=== PATIENT | male | born 1945 | race Caucasian/White ===

== ENCOUNTER 2017-01-25 11:08 | Observation (INO) | payer MEDICARE, OTHER ==
[2017-01-25 11:37] LABS: CHLORIDE,CL 105 mEq/L (98-106); SODIUM,NA 141 mEq/L (136-145)
[2017-01-25] MEDS ORDERED: Sodium Chloride 0.9% 10 ML Syringe FLUSH PRN (13:40)
[2017-01-25] MEDS ORDERED: Temazepam 15 MG Cap PO PRN (13:40)
[2017-01-25] MEDS ORDERED: Morphine 2 MG/ML Syringe IVPUSH PRN (13:40)
[2017-01-25] MEDS ORDERED: Ondansetron 4 MG Tab.DIS PO PRN (13:40)
[2017-01-25] MEDS ORDERED: Acetaminophen/HYDROcodone 325-5 MG Tab PO PRN (13:40)
[2017-01-25] MEDS ORDERED: Nitroglycerin 0.4 MG Tab.SL SL PRN ×2 (13:44→13:45)
[2017-01-25] MEDS ORDERED: ALPRAZOLAM 0.5 MG PO PRN (13:45)
[2017-01-25] MEDS ORDERED: TRIAMCINOLONE ACETONIDE INH PRN (13:45)
[2017-01-25] MEDS ORDERED: LEVALBUTEROL TARTRATE INH PRN (13:45)
[2017-01-25] MEDS ORDERED: OXYMETAZOLINE 0.05% NASBOTH PRN (13:45)
[2017-01-25] MEDS: Enoxaparin 40 MG/0.4 ML Syringe SUBCUT SCH ×2 (19:55→20:07)
[2017-01-25] MEDS: BUDESONIDE 0.5 MG/2 ML INH SCH ×2 (19:55→20:07)
[2017-01-25] MEDS ORDERED: PRAMIPEXOLE 0.5 MG PO SCH (20:00)
[2017-01-25] MEDS ORDERED: TEMAZEPAM 15 MG PO SCH (20:00)
[2017-01-25] MEDS: PERFOROMIST 20 MCG INH SCH (20:07)
[2017-01-26] MEDS ORDERED: LEVOTHYROXINE 125 MCG PO SCH (07:00)
[2017-01-26] MEDS ORDERED: OMEPRAZOLE 20 MG PO SCH (07:00)
[2017-01-26] MEDS ORDERED: ROSUVASTATIN 10 MG PO SCH (08:00)
[2017-01-26] MEDS ORDERED: SERTRALINE 100 MG PO SCH (08:00)
[2017-01-26] MEDS ORDERED: Aspirin 81 MG Tab.EC PO SCH (08:00)
[2017-01-26] MEDS ORDERED: PTOM-AMLODIPINE 5MG TAB PO SCH (08:00)
[2017-01-26] MEDS ORDERED: SPIRIVA RESPIMAT INH SCH (08:00)
[2017-01-26] MEDS ORDERED: Isosorbide Mononitrate 30 MG Tab.ER PO SCH ×2 (08:30→08:58)
[2017-01-26] MEDS: BUDESONIDE 0.5 MG/2 ML INH SCH (09:36)
[2017-01-26] MEDS: PERFOROMIST 20 MCG INH SCH (09:36)
[2017-01-26 16:19] VITALS: BP 145/68
--- NOTE | 2017-01-27 12:56 | PCM.DCSUM1 ---
Discharge Summary - Hospital Course Free Text/Narrative:: Patient admitted by Dr. Fry with chest pain that radiated down left arm, shortness of breath and headache. Patient's blood pressure was elevated at 170/ 80. Admitted for cardiac work up. Had had a stress test a year ago that patient relates was normal. - Discharge Data Discharge Date: 01/26/17 Discharge Disposition: Home, Self-Care 01 Condition: Good - Patient Summary/Data Complications: none Hospital Course: Patient admitted for cardiac work up. EKGs have been normal. D-Dimer was 0.48. Troponin was negative through stay. Blood pressures did remain high so was started on ImDur and did have a good response and blood pressure returned to normal. No further chest pain today. Denies any increased shortness of breath. - Patient Instructions Diet: Usual Diet as Tolerated Activity: As Tolerated - Discharge Plan Prescriptions/Med Rec: Isosorbide Mononitrate [Imdur] 30 mg PO ONETIME #30 tab.er Home Medications: Home Meds Aspirin [Halfprin] 81 mg PO DAILY 12/24/15 [History] Levalbuterol Tartrate [Xopenex HFA] 2 puff INH Q4HR 12/24/15 [History] Levothyroxine 125 mcg PO ACBREAKFAST 12/24/15 [History] Nitroglycerin [Nitrostat] 0.4 mg SL Q5M PRN 12/24/15 [History] Omeprazole [Prilosec] 20 mg PO DAILY 12/24/15 [History] Pramipexole Di-HCl [Pramipexole Dihydrochloride] 0.5 mg PO BEDTIME 12/24/15 [ History] Rosuvastatin [Crestor] 10 mg PO DAILY 12/24/15 [History] Sertraline HCl 150 mg PO DAILY 12/24/15 [History] Temazepam [Restoril] 15 mg PO BEDTIME 12/24/15 [History] Triamcinolone Acetonide [Nasacort AQ [place]] 2 sprays INH BEDTIME PRN 12/24/15 [ History] amLODIPine Besylate [Norvasc] 5 mg PO DAILY 12/24/15 [History] ALPRAZolam [Xanax] 0.5 mg PO Q6H PRN 01/27/16 [History] Budesonide [Pulmicort] 0.5 mg NEB BID 01/25/17 [History] Formoterol [Perforomist] 20 mcg NEB BID 01/25/17 [History] Oxymetazoline [Afrin Original 0.05% Nasal [place]] 2 spray NASBOTH BID PRN [History] Tiotropium [place] [Spiriva Respimat] 2 puff INH DAILY 01/25/17 [History] Isosorbide Mononitrate [Imdur] 30 mg PO ONETIME #30 tab.er 01/26/17 [Rx] Referrals: Bonifacio Fry MD [Primary Care Provider] - (Follow up with Dr. Fry in 10 days ) - Discharge Summary/Plan Comment DC Time >30 min.: No Discharge Summary/Plan Comment: Discharge home. Will continue ImDur in addition to his usual meds. Follow up with Dr. Fry in a week. Report any changes in status sooner as needed. - General Info Date of Service: 01/26/17 Admission Dx/Problem (Free Text: Chest Pain Functional Status: Reports: pain controlled, tolerating diet, ambulating - Review of Systems General: Denies: fever, weakness, fatigue HEENT: Reports: no symptoms Pulmonary: Reports: shortness of breath. Denies: cough, wheezing Cardiovascular: Denies: chest pain, edema, lightheadedness Gastrointestinal: Denies: Abdominal pain, Diarrhea, Nausea, Vomiting Genitourinary: Reports: no symptoms Musculoskeletal: Reports: no symptoms Skin: Reports: no symptoms - Patient Data Vitals - Most Recent: Last Vital Signs Temp 99.3 F 01/26/17 16:00 Pulse 62 01/26/17 16:00 Resp 18 01/26/17 16:00 BP 145/68 H 01/26/17 16:00 Pulse Ox 95 01/26/17 16:00 Weight - Most Recent: 171 lb 11.2 oz Med Orders - Current: Current Medications Discontinued Medications Acetaminophen/Hydrocodone Bitart ([place] 325-5 Mg) 1 tab PO Q4H PRN PRN Reason: Pain (moderate 4-6) Aspirin (Halfprin) 81 mg PO DAILY [facility] Last Admin: 01/26/17 07:45 Dose: 81 mg Budesonide (Pulmicort) 0.5 mg INH BIDRT [facility] Last Admin: 01/26/17 09:36 Dose: 0.5 mg Enoxaparin Sodium (Lovenox) 40 mg SUBCUT Q24H [facility] Last Admin: 01/25/17 20:07 Dose: Not Given Isosorbide Mononitrate (Imdur) 20 mg PO DAILY [facility] Last Admin: 01/26/17 11:05 Dose: Not Given Isosorbide Mononitrate (Imdur) 30 mg PO DAILY [facility] Last Admin: 01/26/17 09:31 Dose: 30 mg Levothyroxine Sodium (Levothyroxine) 125 mcg PO ACBREAKFAST [facility] Last Admin: 01/26/17 07:44 Dose: 125 mcg Morphine Sulfate (Morphine) 2 mg IVPUSH Q2H PRN PRN Reason: Pain (severe 7-10) Nitroglycerin (Nitrostat) 0.4 mg SL Q5M PRN PRN Reason: Chest Pain Stop: 01/25/17 13:55 Nitroglycerin (Nitrostat) 0.4 mg SL Q5M PRN PRN Reason: Chest Pain Ptom (Alprazolam [ (Xanax] 0.5 Mg)) 0.5 mg PO Q6H PRN PRN Reason: Anxiety Last Admin: 01/25/17 19:54 Dose: 0.5 mg Ptom (Levalbuterol Tartrate [Xopenex Hfa] 2 Puff) 2 puff INH Q4H PRN PRN Reason: DYSPNEA Ptom (Omeprazole [ (Prilosec] 20 Mg)) 20 mg PO 0700 [facility] Last Admin: 01/26/17 07:44 Dose: 20 mg Ptom (Rosuvastatin [ (Crestor] 10 Mg)) 10 mg PO DAILY [facility] Last Admin: 01/26/17 07:46 Dose: 10 mg Ptom [Spiriva (Respimat] 2 Puff)) 2 puff INH DAILY [facility] Last Admin: 01/26/17 07:47 Dose: 2 puff Ptom- (Triamcinolone (Acetonide 2 Sprays)) 2 sprays INH BEDTIME PRN PRN Reason: Congestion Ptom-Amlodipine 5mg (Tab) 1 each PO DAILY [facility] Last Admin: 01/26/17 07:45 Dose: 1 each Perforomist 20mcg (Neb) 1 each INH BIDRT [facility] Last Admin: 01/26/17 09:36 Dose: 1 each Ondansetron HCl (Zofran Odt) 8 mg PO Q6H PRN PRN Reason: nausea, able to take PO Oxymetazoline HCl (Afrin Original 0.05% Nasal [place]) 0 ml NASBOTH BID PRN PRN Reason: Congestion Last Admin: 01/25/17 19:50 Dose: 1 spray Pramipexole Dihydrochloride (Mirapex) 0.5 mg PO BEDTIME [facility] Last Admin: 01/25/17 19:51 Dose: 0.5 mg Sertraline HCl (Zoloft) 150 mg PO DAILY [facility] Last Admin: 01/26/17 07:48 Dose: 150 mg Sodium Chloride (Saline Flush) 10 ml FLUSH ASDIRECTED PRN PRN Reason: Keep Vein Open Temazepam (Restoril) 15 mg PO BEDTIME [facility] Last Admin: 01/25/17 19:54 Dose: 15 mg - Exam General: Reports: alert, oriented HEENT: Reports: Mucous membr. moist/pink Neck: Reports: supple Lungs: Reports: Decreased breath sounds Cardiovascular: Reports: regular rate, regular rhythm Abdomen: Reports: bowel sounds present, soft, no tenderness Extremities: Reports: no edema Skin: Reports: warm, dry Neurological: Reports: no new focal deficit *Q Meaningful Use (DIS) - VTE *Q VTE Criteria *Q: - Stroke *Q Stroke Criteria *Q: - AMI *Q AMI Criteria *Q:
== END 2017-01-26 17:52 | disposition home or self-care (01) ==
LOC: CC.FCMC 11:08 → CC.MS 11:08 → UNDOADMOB 12:33 → CC.MS 13:40
PROVIDERS: ADMIT Family Medicine; ATTEND Family Medicine
DX: R07.9 Chest pain, unspecified (principal); J44.9 Chronic obstructive pulmonary disease, unspecified; E78.5 Hyperlipidemia, unspecified; I10 Essential (primary) hypertension; E03.9 Hypothyroidism, unspecified; R51 Headache; R06.02 Shortness of breath; Z79.82 Long term (current) use of aspirin; Z79.899 Other long term (current) drug therapy; N40.1 Benign prostatic hyperplasia with lower urinary tract symptoms; R35.1 Nocturia; F32.9 Major depressive disorder, single episode, unspecified; K21.9 Gastro-esophageal reflux disease without esophagitis; G47.00 Insomnia, unspecified; G25.81 Restless legs syndrome; Z88.0 Allergy status to penicillin; Z88.8 Allergy status to other drugs, medicaments and biological substances
CPT/HCPCS: 36415; 71020; 80048; 84484; 85025; 85379; 93005; 94640; 96372; A9270; G0378; J1650; 93010; 99217; 99220

== ENCOUNTER 2017-03-10 14:11 | Inpatient (IN) | payer MEDICARE, OTHER ==
[2017-03-10 14:30] LABS: O2 DELIVERY DEVICE ROOM AIR
[2017-03-10] MEDS ORDERED: Albuterol 0.083% 2.5 MG/3 ML Neb Soln ONE (14:36)
[2017-03-10 14:37] LABS: O2 SATURATION ARTERIAL 97 % (95-98); PCO2 ARTERIAL 39 mm/Hg0 (35-45); PO2 ARTERIAL 86 mm/Hg (80-100)
[2017-03-10] MEDS ORDERED: Albuterol 0.083% 2.5 MG/3 ML Neb Soln NEB PRN (15:02)
[2017-03-10] MEDS ORDERED: Acetaminophen 325 MG Tab PO PRN (15:52)
[2017-03-10] MEDS ORDERED: Temazepam 15 MG Cap PO PRN (15:52)
[2017-03-10] MEDS ORDERED: Sodium Chloride 0.9% 10 ML Syringe FLUSH PRN (15:52)
[2017-03-10] MEDS ORDERED: Nitroglycerin 0.4 MG Tab.SL SL PRN (15:55)
[2017-03-10] MEDS ORDERED: XOPENEX INH PRN (16:00)
[2017-03-10] MEDS ORDERED: methylPREDNISolone Sodium Succinate 125 MG/2 ML SDV IV ONE (16:00)
[2017-03-10] MEDS: Enoxaparin 40 MG/0.4 ML Syringe SUBCUT SCH (16:24)
[2017-03-10] MEDS: Levofloxacin/Dextrose 5%-Water 500 MG in Premix Bag 1 BAG IV SCH (16:24)
[2017-03-10] MEDS: ALPRAZolam 0.25 MG Tab PO PRN (16:31)
[2017-03-10 16:46] LABS: CHLORIDE,CL 102 mEq/L (98-106); SODIUM,NA 141 mEq/L (136-145)
[2017-03-10] MEDS ORDERED: Pramipexole 0.5 MG Tab ONE (19:44)
[2017-03-10] MEDS: Pramipexole 0.5 MG Tab PO SCH (19:49)
[2017-03-10] MEDS: NASACORT AQ SCH (19:50)
[2017-03-10] MEDS ORDERED: Budesonide 0.5 MG/2 ML Neb Susp NEB SCH (20:00)
[2017-03-10] MEDS: Budesonide 0.5 MG/2 ML Neb Susp NEB SCH (20:57)
[2017-03-10] MEDS: FORMOTEROL 20 MCG NEB SCH (20:58)
[2017-03-10] MEDS: Temazepam 15 MG Cap PO SCH (21:00)
[2017-03-11] MEDS: Pantoprazole 40 MG Tab.CR PO SCH (06:19)
[2017-03-11] MEDS: Levothyroxine 125 MCG Tab PO SCH (06:19)
[2017-03-11] MEDS: Sertraline 100 MG Tab PO SCH (08:01)
[2017-03-11] MEDS: Isosorbide Mononitrate 30 MG Tab.ER PO SCH (08:02)
[2017-03-11] MEDS: Aspirin 81 MG Tab.EC PO SCH (08:02)
[2017-03-11] MEDS: ROSUVASTATIN 10 MG PO SCH (08:02)
[2017-03-11] MEDS: methylPREDNISolone Sodium Succinate 125 MG/2 ML SDV IVPUSH SCH (08:03)
[2017-03-11] MEDS: ROFLUMILAST PO SCH (08:03)
[2017-03-11] MEDS: SPIRIVA RESPIMAT INH SCH (08:06)
[2017-03-11] MEDS: FORMOTEROL 20 MCG NEB SCH (09:00)
[2017-03-11] MEDS: ARFORMOTEROL 15 MCG/2 ML INH SCH ×2 (09:24→19:51)
[2017-03-11] MEDS: Budesonide 0.5 MG/2 ML Neb Susp NEB SCH ×2 (09:24→20:02)
[2017-03-11] MEDS: Levofloxacin/Dextrose 5%-Water 500 MG in Premix Bag 1 BAG IV SCH (15:56)
[2017-03-11] MEDS: Enoxaparin 40 MG/0.4 ML Syringe SUBCUT SCH (16:00)
[2017-03-11] MEDS: Pramipexole 0.5 MG Tab PO SCH (19:50)
[2017-03-11] MEDS: NASACORT AQ SCH (19:51)
[2017-03-11] MEDS: Temazepam 15 MG Cap PO SCH (21:11)
[2017-03-11] MEDS: ALPRAZolam 0.25 MG Tab PO PRN (21:12)
[2017-03-12] MEDS: Levothyroxine 125 MCG Tab PO SCH (06:42)
[2017-03-12] MEDS: Pantoprazole 40 MG Tab.CR PO SCH (06:42)
[2017-03-12 07:44] LABS: CHLORIDE,CL 103 mEq/L (98-106); SODIUM,NA 141 mEq/L (136-145)
[2017-03-12] MEDS: methylPREDNISolone Sodium Succinate 125 MG/2 ML SDV IVPUSH SCH (07:51)
[2017-03-12] MEDS: Aspirin 81 MG Tab.EC PO SCH (07:52)
[2017-03-12] MEDS: Sertraline 100 MG Tab PO SCH (07:53)
[2017-03-12] MEDS: Isosorbide Mononitrate 30 MG Tab.ER PO SCH (07:53)
[2017-03-12] MEDS: SPIRIVA RESPIMAT INH SCH (07:55)
[2017-03-12] MEDS: ROSUVASTATIN 10 MG PO SCH (07:56)
[2017-03-12] MEDS: ROFLUMILAST PO SCH (07:56)
[2017-03-12] MEDS: ARFORMOTEROL 15 MCG/2 ML INH SCH ×2 (08:40→21:19)
[2017-03-12] MEDS: Budesonide 0.5 MG/2 ML Neb Susp NEB SCH ×2 (08:40→21:18)
[2017-03-12] MEDS: ALPRAZolam 0.25 MG Tab PO PRN ×2 (09:19→21:25)
--- NOTE | 2017-03-12 10:30 | PCM.PN ---
- General Info Date of Service: 03/12/17 Functional Status: Reports: pain controlled - Review of Systems General: Reports: No Symptoms HEENT: Reports: sinus congestion Pulmonary: Reports: shortness of breath, cough, sputum, wheezing Cardiovascular: Reports: No Symptoms Gastrointestinal: Reports: No symptoms Genitourinary: Reports: no symptoms Musculoskeletal: Reports: no symptoms Skin: Reports: no symptoms Neurological: Reports: No Symptoms Psychiatric: Reports: no symptoms - Patient Data Vitals - most recent: Last Vital Signs Temp 98.9 F 03/12/17 07:46 Pulse 66 03/12/17 07:46 Resp 16 03/12/17 07:46 BP 158/78 H 03/12/17 07:53 Pulse Ox 97 03/12/17 07:46 Weight - most recent: 164 lb 12.8 oz Lab Results last 24 hrs: Laboratory Results - last 24 hr 03/12/17 03/12/17 Range/Units 05:00 05:00 WBC 5.3 (5.0-10.0) 10^3/uL RBC 3.94 L (4.50-6.00) 10^6/uL Hgb 13.0 L (14.0-18.0) g/dL Hct 38.4 L (40.0-54.0) % MCV 97.5 H (82.0-94.0) fL MCH 33.0 H (27.0-32.0) pg MCHC 33.9 (33.0-38.0) g/dL RDW Coeff of Arun 13.4 (11.0-15.0) % Plt Count 149 L (150-400) 10^3/uL Neut % (Auto) 84.9 (35-85) % Lymph % (Auto) 10.2 (10-55) % [place] % (Auto) 4.5 (0-16) % Eos % (Auto) 0.2 (0-5) % Baso % (Auto) 0.2 (0-3) % Neut # (Auto) 4.49 (1.80-7.00) 10^3/uL Lymph # (Auto) 0.54 L (1.00-4.80) 10^3/uL [place] # (Auto) 0.24 (0.00-0.80) 10^3/uL Eos # (Auto) 0.01 (0.00-0.45) 10^3/uL Baso # (Auto) 0.01 10^3/uL Sodium 141 (136-145) mEq/L Potassium 4.2 (3.5-5.0) mEq/L Chloride 103 (98-106) mEq/L Carbon Dioxide 32 (21-32) mmol/L BUN 30 H D (7-18) mg/dL Creatinine 1.0 (0.7-1.3) mg/dL Est Cr Clr Drug Dosing 71.64 mL/min Estimated GFR (MDRD) > 60 (>=60) mL/min Glucose 102 H D (75-99) mg/dL Calcium 8.6 (8.4-10.1) mg/dL Total Bilirubin 0.8 (0.0-1.0) mg/dL AST 21 (15-37) U/L ALT 22 (12-78) U/L Alkaline Phosphatase 60 (46-116) U/L C-Reactive Protein < 0.2 L (0.2-0.8) mg/dL Total Protein 7.1 (6.4-8.2) g/dL Albumin 4.0 (3.4-5.0) g/dL Myles Results last 24 hrs: Microbiology 03/11/17 09:30 Gram Stain - Final Sputum - Expectorated Med Orders - Current: Current Medications Acetaminophen (Tylenol) 650 mg PO Q4H PRN PRN Reason: Pain (Mild 1-3)/fever Last Admin: 03/11/17 19:50 Dose: 650 mg Albuterol (Proventil Neb Soln) 2.5 mg NEB Q4H PRN PRN Reason: Dyspnea Alprazolam (Xanax) 0.5 mg PO Q6H PRN PRN Reason: Anxiety Last Admin: 03/12/17 09:19 Dose: 0.5 mg Aspirin (Halfprin) 81 mg PO DAILY [facility] Last Admin: 03/12/17 07:52 Dose: 81 mg Budesonide (Pulmicort) 0.5 mg NEB BIDRT [facility] Last Admin: 03/12/17 08:40 Dose: 0.5 mg Enoxaparin Sodium (Lovenox) 40 mg SUBCUT Q24H [facility] Last Admin: 03/11/17 16:00 Dose: 40 mg Levofloxacin/Dextrose 500 mg/ (Premix) 100 mls @ 100 mls/hr IV Q24H [facility] Last Admin: 03/11/17 15:56 Dose: 100 mls/hr Isosorbide Mononitrate (Imdur) 30 mg PO DAILY [facility] Last Admin: 03/12/17 07:53 Dose: 30 mg Levothyroxine Sodium (Levothyroxine) 125 mcg PO ACBREAKFAST [facility] Last Admin: 03/12/17 06:42 Dose: 125 mcg Methylprednisolone Sodium Succinate (Solu-Medrol) 125 mg IVPUSH Q24H [facility] Last Admin: 03/12/17 07:51 Dose: 125 mg Nitroglycerin (Nitrostat) 0.4 mg SL Q5M PRN PRN Reason: Chest Pain Ptom [Xopenex Hfa] 2 (Puff)) 2 puff INH Q4H PRN PRN Reason: DYSPNEA Ptom (Roflumilast [ (Daliresp] 1 Tab)) 1 tab PO DAILY [facility] Last Admin: 03/12/17 07:56 Dose: 1 tab Ptom (Rosuvastatin [ (Crestor] 10 Mg)) 10 mg PO DAILY [facility] Last Admin: 03/12/17 07:56 Dose: 10 mg Ptom[Spiriva (Respimat] 2 Puff)) 2 puff INH DAILY [facility] Last Admin: 03/12/17 07:55 Dose: 2 puff Ptom Nasacort Aq 2 sprays .XX BEDTIME [facility] Last Admin: 03/11/17 19:51 Dose: 2 sprays Nf Medication 1 Each Brovana 15mcg/2ml * Own Med 1 each INH BID [facility] Last Admin: 03/12/17 08:40 Dose: 1 each Pantoprazole Sodium (Protonix) 40 mg PO 0700 [facility] Last Admin: 03/12/17 06:42 Dose: 40 mg Pramipexole Dihydrochloride (Mirapex) 0.5 mg PO BEDTIME [facility] Last Admin: 03/11/17 19:50 Dose: 0.5 mg Sertraline HCl (Zoloft) 150 mg PO DAILY [facility] Last Admin: 03/12/17 07:53 Dose: 150 mg Sodium Chloride (Saline Flush) 10 ml FLUSH ASDIRECTED PRN PRN Reason: Keep Vein Open Temazepam (Restoril) 15 mg PO 2100 [facility] Last Admin: 03/11/17 21:11 Dose: 15 mg Discontinued Medications Albuterol (Proventil Neb Soln) Confirm Administered Dose 2.5 mg .ROUTE .STK-MED ONE Stop: 03/10/17 14:37 Last Admin: 03/10/17 15:02 Dose: 2.5 mg Methylprednisolone Sodium Succinate (Solu-Medrol) 125 mg IV ONETIME ONE Stop: 03/10/17 16:01 Last Admin: 03/10/17 16:24 Dose: 125 mg Ptom (Formoterol [ (Perforomist] 20 Mcg)) 20 mcg NEB BIDRT [facility] Last Admin: 03/11/17 09:00 Dose: Not Given Pramipexole Dihydrochloride (Mirapex) Confirm Administered Dose 0.5 mg .ROUTE .STK-MED ONE Stop: 03/10/17 19:45 Last Admin: 03/10/17 19:50 Dose: Not Given - Exam Quality Assessment: supplemental oxygen General: alert, oriented, cooperative, no acute distress Neck: supple Lungs: Normal respiratory effort, Wheezing, Other (currently getting breathing treatment. ) Cardiovascular: Regular Rate, Regular Rhythm, No Murmurs Abdomen: soft, no tenderness, distension Back Exam: normal inspection, full range of motion Extremities: no edema, normal pulses, no tenderness/swelling, no clubbing, no cyanosis, no calf tenderness Peripheral Pulses: 2+: radial (L), radial (R), posterior tibial (L), posterior tibial (R), dorsalis pedis (L), dorsalis pedis (R) Skin: warm, dry, intact Neurological: no new focal deficit Psy/Mental Status: alert, normal affect, normal mood - Problem List Review Problem List Initiated/Reviewed/Updated: Yes - My Orders Last 24 Hours: My Active Orders 03/12/17 10:17 Ambulate [RC] ASDIRECTED - Plan Plan:: This patient is a 72 year old male that was admitted for shortness of breath. Today the patient reports that he is feeling better. He reports that when he wears the oxygen that he gets better. The patient does not know if the breathing treatments help him with the shortness of breath, although, I asked him if I took away his treatments if his breathing would get worse. He said yes his breathing would worsen if he did not have the breathing treatments. The patient is conversing in full and complete sentences. The patient oxygen saturation does drop when patient is off the oxygen. I have ordered the patient to ambulate in the dean with and without oxygen, will check saturation and how he does overall. The patient reports to me that he is going home tomorrow. He reports he will not stay any longer because he is getting his house moved Tuesday. The patient denies headache, n, v, d, f, cp, abd pain, urinary/bowel changes, rash. I have reviewed labs, his BUN was 16 on the , today is 30. His CR is actually better today, but was never abnormal. I will repeat labs tomorrow and see his results of ambulation and see this patient tomorrow. Will continue tx plan otherwise. With patients Dyspnea. I ordered an angio of the chest. Radiologist read and called me with results: No PE, No infiltrates. There is severe emphysema.
[2017-03-12] MEDS ORDERED: LORazepam 2 MG/ML Syringe IVPUSH ONE (13:19)
[2017-03-12] MEDS: Levofloxacin/Dextrose 5%-Water 500 MG in Premix Bag 1 BAG IV SCH (15:12)
[2017-03-12] MEDS: Enoxaparin 40 MG/0.4 ML Syringe SUBCUT SCH (15:17)
[2017-03-12] MEDS: Pramipexole 0.5 MG Tab PO SCH (20:02)
[2017-03-12] MEDS: NASACORT AQ SCH (21:19)
[2017-03-12] MEDS: Temazepam 15 MG Cap PO SCH (21:25)
[2017-03-13] MEDS: Levothyroxine 125 MCG Tab PO SCH (06:46)
[2017-03-13] MEDS: Pantoprazole 40 MG Tab.CR PO SCH (06:46)
[2017-03-13] MEDS: methylPREDNISolone Sodium Succinate 125 MG/2 ML SDV IVPUSH SCH (07:56)
[2017-03-13] MEDS: Sertraline 100 MG Tab PO SCH (07:58)
[2017-03-13] MEDS: Isosorbide Mononitrate 30 MG Tab.ER PO SCH (07:58)
[2017-03-13] MEDS: ALPRAZolam 0.25 MG Tab PO PRN (07:59)
[2017-03-13] MEDS: Aspirin 81 MG Tab.EC PO SCH (07:59)
[2017-03-13] MEDS: Budesonide 0.5 MG/2 ML Neb Susp NEB SCH ×2 (08:56→20:12)
[2017-03-13] MEDS: ROSUVASTATIN 10 MG PO SCH (08:57)
[2017-03-13] MEDS: ROFLUMILAST PO SCH (08:57)
[2017-03-13] MEDS: ARFORMOTEROL 15 MCG/2 ML INH SCH ×2 (08:58→20:13)
[2017-03-13] MEDS: SPIRIVA RESPIMAT INH SCH (08:58)
[2017-03-13] MEDS ORDERED: Fluconazole/Normal Saline 200 MG in Premix Bag 1 BAG IV SCH (10:00)
[2017-03-13] MEDS ORDERED: Albuterol/Ipratropium 3.0-0.5 MG/3 ML Neb Soln NEB ONE (10:03)
[2017-03-13 10:05] LABS: CHLORIDE,CL 103 mEq/L (98-106); SODIUM,NA 140 mEq/L (136-145)
--- NOTE | 2017-03-13 10:24 | PCM.PN ---
- General Info Date of Service: 03/13/17 Functional Status: Reports: pain controlled - Review of Systems General: Reports: No Symptoms HEENT: Reports: sinus congestion, rhinitis Pulmonary: Reports: shortness of breath, cough, sputum, wheezing Cardiovascular: Reports: No Symptoms Gastrointestinal: Reports: No symptoms Genitourinary: Reports: no symptoms Musculoskeletal: Reports: no symptoms Skin: Reports: no symptoms Neurological: Reports: No Symptoms Psychiatric: Reports: no symptoms - Patient Data Vitals - most recent: Last Vital Signs Temp 98.0 F 03/13/17 07:35 Pulse 62 03/13/17 07:35 Resp 2 L 03/13/17 07:35 BP 145/81 H 03/13/17 07:58 Pulse Ox 98 03/13/17 07:35 Weight - most recent: 164 lb 12.8 oz Lab Results last 24 hrs: Laboratory Results - last 24 hr 03/13/17 03/13/17 Range/Units 09:41 09:41 WBC 5.3 (5.0-10.0) 10^3/uL RBC 3.94 L (4.50-6.00) 10^6/uL Hgb 12.8 L (14.0-18.0) g/dL Hct 38.4 L (40.0-54.0) % MCV 97.5 H (82.0-94.0) fL MCH 32.5 H (27.0-32.0) pg MCHC 33.3 (33.0-38.0) g/dL RDW Coeff of Arun 13.3 (11.0-15.0) % Plt Count 148 L (150-400) 10^3/uL MPV 8.3 fL Sodium 140 (136-145) mEq/L Potassium 4.1 (3.5-5.0) mEq/L Chloride 103 (98-106) mEq/L Carbon Dioxide 31 (21-32) mmol/L BUN 33 H (7-18) mg/dL Creatinine 1.1 (0.7-1.3) mg/dL Est Cr Clr Drug Dosing 65.12 mL/min Estimated GFR (MDRD) > 60 (>=60) mL/min Glucose 126 H (75-99) mg/dL Calcium 8.5 (8.4-10.1) mg/dL C-Reactive Protein < 0.2 L (0.2-0.8) mg/dL Myles Results last 24 hrs: Microbiology 03/11/17 09:30 Gram Stain - Final Sputum - Expectorated Sputum Culture - Final YEAST Med Orders - Current: Current Medications Acetaminophen (Tylenol) 650 mg PO Q4H PRN PRN Reason: Pain (Mild 1-3)/fever Last Admin: 03/11/17 19:50 Dose: 650 mg Albuterol (Proventil Neb Soln) 2.5 mg NEB Q4H PRN PRN Reason: Dyspnea Last Admin: 03/12/17 13:04 Dose: 2.5 mg Alprazolam (Xanax) 0.5 mg PO TID [facility] Aspirin (Halfprin) 81 mg PO DAILY [facility] Last Admin: 03/13/17 07:59 Dose: 81 mg Budesonide (Pulmicort) 0.5 mg NEB BIDRT [facility] Last Admin: 03/13/17 08:56 Dose: 0.5 mg Enoxaparin Sodium (Lovenox) 40 mg SUBCUT Q24H [facility] Last Admin: 03/12/17 15:17 Dose: 40 mg Levofloxacin/Dextrose 500 mg/ (Premix) 100 mls @ 100 mls/hr IV Q24H [facility] Last Admin: 03/12/17 15:12 Dose: 100 mls/hr Fluconazole/Sodium Chloride (200 mg/ Premix) 100 mls @ 100 mls/hr IV Q24H [facility] Isosorbide Mononitrate (Imdur) 30 mg PO DAILY [facility] Last Admin: 03/13/17 07:58 Dose: 30 mg Levothyroxine Sodium (Levothyroxine) 125 mcg PO ACBREAKFAST [facility] Last Admin: 03/13/17 06:46 Dose: 125 mcg Methylprednisolone Sodium Succinate (Solu-Medrol) 125 mg IVPUSH Q24H [facility] Last Admin: 03/13/17 07:56 Dose: 125 mg Nitroglycerin (Nitrostat) 0.4 mg SL Q5M PRN PRN Reason: Chest Pain Ptom [Xopenex Hfa] 2 (Puff)) 2 puff INH Q4H PRN PRN Reason: DYSPNEA Ptom (Roflumilast [ (Daliresp] 1 Tab)) 1 tab PO DAILY [facility] Last Admin: 03/13/17 08:57 Dose: 1 tab Ptom (Rosuvastatin [ (Crestor] 10 Mg)) 10 mg PO DAILY [facility] Last Admin: 03/13/17 08:57 Dose: 10 mg Ptom[Spiriva (Respimat] 2 Puff)) 2 puff INH DAILY [facility] Last Admin: 03/13/17 08:58 Dose: 2 puff Ptom Nasacort Aq 2 sprays .XX BEDTIME [facility] Last Admin: 03/12/17 21:19 Dose: 2 sprays Nf Medication 1 Each Brovana 15mcg/2ml * Own Med 1 each INH BID [facility] Last Admin: 03/13/17 08:58 Dose: 1 each Pantoprazole Sodium (Protonix) 40 mg PO 0700 [facility] Last Admin: 03/13/17 06:46 Dose: 40 mg Pramipexole Dihydrochloride (Mirapex) 0.5 mg PO BEDTIME [facility] Last Admin: 03/12/17 20:02 Dose: 0.5 mg Sertraline HCl (Zoloft) 150 mg PO DAILY [facility] Last Admin: 03/13/17 07:58 Dose: 150 mg Sodium Chloride (Saline Flush) 10 ml FLUSH ASDIRECTED PRN PRN Reason: Keep Vein Open Temazepam (Restoril) 15 mg PO 2100 [facility] Last Admin: 03/12/17 21:25 Dose: 15 mg Discontinued Medications Albuterol (Proventil Neb Soln) Confirm Administered Dose 2.5 mg .ROUTE .STK-MED ONE Stop: 03/10/17 14:37 Last Admin: 03/10/17 15:02 Dose: 2.5 mg Albuterol/Ipratropium (Duoneb 3.0-0.5 Mg/3 Ml) 3 ml NEB ONETIME ONE Stop: 03/13/17 10:04 Alprazolam (Xanax) 0.5 mg PO Q6H PRN PRN Reason: Anxiety Last Admin: 03/13/17 07:59 Dose: 0.5 mg Lorazepam (Ativan) 1 mg IVPUSH ONETIME ONE Stop: 03/12/17 13:20 Last Admin: 03/12/17 13:48 Dose: 1 mg Methylprednisolone Sodium Succinate (Solu-Medrol) 125 mg IV ONETIME ONE Stop: 03/10/17 16:01 Last Admin: 03/10/17 16:24 Dose: 125 mg Ptom (Formoterol [ (Perforomist] 20 Mcg)) 20 mcg NEB BIDRT [facility] Last Admin: 03/11/17 09:00 Dose: Not Given Pramipexole Dihydrochloride (Mirapex) Confirm Administered Dose 0.5 mg .ROUTE .STK-MED ONE Stop: 03/10/17 19:45 Last Admin: 03/10/17 19:50 Dose: Not Given - Exam Quality Assessment: supplemental oxygen General: alert, oriented, cooperative, no acute distress HEENT: Pupils equal, Pupils reactive Neck: supple Lungs: Decreased breath sounds, Rhonchi, Wheezing Cardiovascular: Regular Rate, Regular Rhythm Abdomen: soft, no tenderness, distension (mild) Back Exam: normal inspection, full range of motion Extremities: no edema, normal pulses, no tenderness/swelling, no clubbing, no cyanosis, no calf tenderness Peripheral Pulses: 2+: radial (L), radial (R), posterior tibial (L), posterior tibial (R), dorsalis pedis (L), dorsalis pedis (R) Skin: warm, dry, intact Neurological: no new focal deficit Psy/Mental Status: alert, normal affect, normal mood - Problem List Review Problem List Initiated/Reviewed/Updated: Yes - My Orders Last 24 Hours: My Active Orders 03/12/17 13:14 PE Chest [Ang Chest] [CT] Stat 03/13/17 10:00 Fluconazole/Normal Saline [Diflucan in NS 200 MG/100 ML] 200 mg Premix Bag 1 bag IV Q24H 03/13/17 10:03 RT Aerosol Therapy [RC] ASDIRECTED 03/13/17 14:00 ALPRAZolam [Xanax] 0.5 mg PO TID - Plan Plan:: This patient is a 72 year old male that was admitted for shortness of breath. Today the patient reports that he is feeling better. He reports that when he wears the oxygen that he gets better. The patient is conversing in full and complete sentences. The patient oxygen saturation does drop when patient is off the oxygen. The patient is able to ambulate in the dean without oxygen at 88%, with oxygen at 93% without shortness of breath. He is laying in bed at 93% on 2.5L NC. He reports his breathing has not improved in the last 24 hours. He has agreed to stay in the hospital. Labs are unremarkable, but his culture of sputum is positive for yeast. I will treat this. The patient denies headache, n , v, d, f, cp, abd pain, urinary/bowel changes, rash. Will continue tx plan with Diflucan and a duoneb x1 today.
[2017-03-13] MEDS: ALPRAZolam 0.25 MG Tab PO SCH ×2 (13:53→20:12)
[2017-03-13] MEDS: Levofloxacin/Dextrose 5%-Water 500 MG in Premix Bag 1 BAG IV SCH (15:49)
[2017-03-13] MEDS: Enoxaparin 40 MG/0.4 ML Syringe SUBCUT SCH (15:49)
[2017-03-13] MEDS: Pramipexole 0.5 MG Tab PO SCH (20:12)
[2017-03-13] MEDS: NASACORT AQ SCH (20:13)
[2017-03-13] MEDS: Temazepam 15 MG Cap PO SCH (21:03)
[2017-03-14] MEDS: Pantoprazole 40 MG Tab.CR PO SCH (06:33)
[2017-03-14] MEDS: Levothyroxine 125 MCG Tab PO SCH (06:33)
[2017-03-14] MEDS: methylPREDNISolone Sodium Succinate 125 MG/2 ML SDV IVPUSH SCH (07:29)
[2017-03-14] MEDS: Isosorbide Mononitrate 30 MG Tab.ER PO SCH (07:29)
[2017-03-14] MEDS: Aspirin 81 MG Tab.EC PO SCH (07:29)
[2017-03-14] MEDS: ALPRAZolam 0.25 MG Tab PO SCH (07:29)
[2017-03-14] MEDS: Sertraline 100 MG Tab PO SCH (07:30)
[2017-03-14 07:31] VITALS: BP 144/74
[2017-03-14] MEDS: ROSUVASTATIN 10 MG PO SCH (07:31)
[2017-03-14] MEDS: SPIRIVA RESPIMAT INH SCH (07:33)
[2017-03-14] MEDS: ARFORMOTEROL 15 MCG/2 ML INH SCH (07:33)
[2017-03-14] MEDS ORDERED: Fluconazole/Normal Saline 200 MG in Premix Bag 1 BAG IV SCH (08:00)
--- NOTE | 2017-03-14 08:31 | PCM.PN ---
- General Info Date of Service: 03/11/17 Admission Dx/Problem (Free Text): COPD Exacerbation Functional Status: Reports: pain controlled, tolerating diet. Denies: ambulating - Review of Systems General: Reports: Weakness, Fatigue. Denies: Fever HEENT: Reports: rhinitis Pulmonary: Reports: shortness of breath, cough, sputum, wheezing Cardiovascular: Denies: Chest Pain, Edema, Lightheadedness Gastrointestinal: Denies: Abdominal pain, Nausea, Vomiting Genitourinary: Reports: no symptoms Musculoskeletal: Reports: no symptoms Skin: Reports: no symptoms Neurological: Reports: No Symptoms - Patient Data Vitals - most recent: Last Vital Signs Temp 97.4 F 03/14/17 07:30 Pulse 60 03/14/17 07:30 Resp 16 03/14/17 07:30 BP 144/74 H 03/14/17 07:30 Pulse Ox 98 03/14/17 07:30 Weight - most recent: 164 lb 12.8 oz Lab Results last 24 hrs: Laboratory Results - last 24 hr 03/13/17 03/13/17 Range/Units 09:41 09:41 WBC 5.3 (5.0-10.0) 10^3/uL RBC 3.94 L (4.50-6.00) 10^6/uL Hgb 12.8 L (14.0-18.0) g/dL Hct 38.4 L (40.0-54.0) % MCV 97.5 H (82.0-94.0) fL MCH 32.5 H (27.0-32.0) pg MCHC 33.3 (33.0-38.0) g/dL RDW Coeff of Arun 13.3 (11.0-15.0) % Plt Count 148 L (150-400) 10^3/uL MPV 8.3 fL Sodium 140 (136-145) mEq/L Potassium 4.1 (3.5-5.0) mEq/L Chloride 103 (98-106) mEq/L Carbon Dioxide 31 (21-32) mmol/L BUN 33 H (7-18) mg/dL Creatinine 1.1 (0.7-1.3) mg/dL Est Cr Clr Drug Dosing 65.12 mL/min Estimated GFR (MDRD) > 60 (>=60) mL/min Glucose 126 H (75-99) mg/dL Calcium 8.5 (8.4-10.1) mg/dL C-Reactive Protein < 0.2 L (0.2-0.8) mg/dL Myles Results last 24 hrs: Microbiology 03/11/17 09:30 Gram Stain - Final Sputum - Expectorated Sputum Culture - Final YEAST Med Orders - Current: Current Medications Acetaminophen (Tylenol) 650 mg PO Q4H PRN PRN Reason: Pain (Mild 1-3)/fever Last Admin: 03/11/17 19:50 Dose: 650 mg Albuterol (Proventil Neb Soln) 2.5 mg NEB Q4H PRN PRN Reason: Dyspnea Last Admin: 03/12/17 13:04 Dose: 2.5 mg Alprazolam (Xanax) 0.5 mg PO TID [facility] Last Admin: 03/14/17 07:29 Dose: 0.5 mg Aspirin (Halfprin) 81 mg PO DAILY [facility] Last Admin: 03/14/17 07:29 Dose: 81 mg Budesonide (Pulmicort) 0.5 mg NEB BIDRT [facility] Last Admin: 03/13/17 20:12 Dose: 0.5 mg Enoxaparin Sodium (Lovenox) 40 mg SUBCUT Q24H [facility] Last Admin: 03/13/17 15:49 Dose: 40 mg Levofloxacin/Dextrose 500 mg/ (Premix) 100 mls @ 100 mls/hr IV Q24H [facility] Last Admin: 03/13/17 15:49 Dose: 100 mls/hr Fluconazole/Sodium Chloride (200 mg/ Premix) 100 mls @ 100 mls/hr IV Q24H [facility] Isosorbide Mononitrate (Imdur) 30 mg PO DAILY [facility] Last Admin: 03/14/17 07:29 Dose: 30 mg Levothyroxine Sodium (Levothyroxine) 125 mcg PO ACBREAKFAST [facility] Last Admin: 03/14/17 06:33 Dose: 125 mcg Methylprednisolone Sodium Succinate (Solu-Medrol) 125 mg IVPUSH Q24H [facility] Last Admin: 03/14/17 07:29 Dose: 125 mg Nitroglycerin (Nitrostat) 0.4 mg SL Q5M PRN PRN Reason: Chest Pain Ptom [Xopenex Hfa] 2 (Puff)) 2 puff INH Q4H PRN PRN Reason: DYSPNEA Ptom (Roflumilast [ (Daliresp] 1 Tab)) 1 tab PO DAILY [facility] Last Admin: 03/13/17 08:57 Dose: 1 tab Ptom (Rosuvastatin [ (Crestor] 10 Mg)) 10 mg PO DAILY [facility] Last Admin: 03/14/17 07:31 Dose: 10 mg Ptom[Spiriva (Respimat] 2 Puff)) 2 puff INH DAILY [facility] Last Admin: 03/14/17 07:33 Dose: 2 puff Ptom Nasacort Aq 2 sprays .XX BEDTIME [facility] Last Admin: 03/13/17 20:13 Dose: 2 sprays Nf Medication 1 Each Brovana 15mcg/2ml * Own Med 1 each INH BID [facility] Last Admin: 03/14/17 07:33 Dose: 1 each Pantoprazole Sodium (Protonix) 40 mg PO 0700 [facility] Last Admin: 03/14/17 06:33 Dose: 40 mg Pramipexole Dihydrochloride (Mirapex) 0.5 mg PO BEDTIME [facility] Last Admin: 03/13/17 20:12 Dose: 0.5 mg Sertraline HCl (Zoloft) 150 mg PO DAILY [facility] Last Admin: 03/14/17 07:30 Dose: 150 mg Sodium Chloride (Saline Flush) 10 ml FLUSH ASDIRECTED PRN PRN Reason: Keep Vein Open Temazepam (Restoril) 15 mg PO 2100 [facility] Last Admin: 03/13/17 21:03 Dose: 15 mg Discontinued Medications Albuterol (Proventil Neb Soln) Confirm Administered Dose 2.5 mg .ROUTE .STK-MED ONE Stop: 03/10/17 14:37 Last Admin: 03/10/17 15:02 Dose: 2.5 mg Albuterol/Ipratropium (Duoneb 3.0-0.5 Mg/3 Ml) 3 ml NEB ONETIME ONE Stop: 03/13/17 10:04 Last Admin: 03/13/17 10:23 Dose: 3 ml Alprazolam (Xanax) 0.5 mg PO Q6H PRN PRN Reason: Anxiety Last Admin: 03/13/17 07:59 Dose: 0.5 mg Fluconazole/Sodium Chloride (200 mg/ Premix) 100 mls @ 100 mls/hr IV Q24H [facility] Last Admin: 03/13/17 10:23 Dose: 100 mls/hr Lorazepam (Ativan) 1 mg IVPUSH ONETIME ONE Stop: 03/12/17 13:20 Last Admin: 03/12/17 13:48 Dose: 1 mg Methylprednisolone Sodium Succinate (Solu-Medrol) 125 mg IV ONETIME ONE Stop: 03/10/17 16:01 Last Admin: 03/10/17 16:24 Dose: 125 mg Ptom (Formoterol [ (Perforomist] 20 Mcg)) 20 mcg NEB BIDRT [facility] Last Admin: 03/11/17 09:00 Dose: Not Given Pramipexole Dihydrochloride (Mirapex) Confirm Administered Dose 0.5 mg .ROUTE .STK-MED ONE Stop: 03/10/17 19:45 Last Admin: 03/10/17 19:50 Dose: Not Given - Exam Quality Assessment: supplemental oxygen General: alert, oriented HEENT: Mucous membr. moist/pink Neck: supple Lungs: Decreased breath sounds, Wheezing Cardiovascular: Regular Rate, Regular Rhythm Abdomen: bowel sounds present, soft, no tenderness Extremities: no edema Skin: warm, dry - Problem List & Annotations (1) COPD exacerbation SNOMED Code(s): 849204262, [id number] Code(s): J44.1 - CHRONIC OBSTRUCTIVE PULMONARY DISEASE W (ACUTE) EXACERBATION Status: Acute Priority: High Current Visit: No - Problem List Review Problem List Initiated/Reviewed/Updated: Yes - Assessment Assessment:: COPD Exacerbation - Plan Plan:: Patient states he had a rough night, didn't sleep well. He does continue to be short of breath. Wheezing. Vital signs stable. No fever. Labs are all stable. Will continue with IV steroids, nebs, Levaquin and RT treatments. Inappropriate for discharge. Continues to require oxygen.
[2017-03-14] MEDS: Budesonide 0.5 MG/2 ML Neb Susp NEB SCH (09:33)
[2017-03-14] MEDS ORDERED: Levalbuterol HCl 1.25 MG/3 ML Neb ONE (09:50)
--- NOTE | 2017-03-14 20:52 | PCM.DCSUM1 ---
Discharge Summary - Hospital Course Free Text/Narrative:: Patient admitted by Dr. Fry for COPD Exacerbation/Bronchitis. Patient had been at his son's house where a chimney had been torn down and there was a great deal of dust. Feels like this caused increased issues with his breathing/ COPD. Having difficulty handling activity with increased wheezing. Dr. Fry admitted and continued nebulizers and started him on steroids with lab work up. Oxygen required on admit. - Discharge Data Discharge Date: 03/14/17 Discharge Disposition: DC/Tfer W/I Hosp To [place] [id number] Condition: Fair - Discharge Diagnosis/Problem(s) (1) COPD exacerbation SNOMED Code(s): 199566451, [id number] ICD Code: J44.1 - CHRONIC OBSTRUCTIVE PULMONARY DISEASE W (ACUTE) EXACERBATION Status: Acute Priority: High - Patient Summary/Data Complications: none Consults: Consultations 03/10/17 15:52 Respiratory Care Assess and Treatment [CONS] Routine Hospital Course: Patient has had slow improvement with increase in air exchange. Feeling better than on admission. Initial labs were stable. Chest xray unremarkable for active infiltrate. Given usual nebs and respiratory treatments. Continued with IV steroids. Wheezing is improved but does continue to have difficulty with activity tolerance. Continues to require oxygen. Will transfer to [facility] bed for ongoing respiratory treatments, steroids and oxygen. - Discharge Plan Home Medications: Home Meds Aspirin [Halfprin] 81 mg PO DAILY 12/24/15 [History] Levalbuterol Tartrate [Xopenex HFA] 2 puff INH Q4HR 12/24/15 [History] Levothyroxine 125 mcg PO ACBREAKFAST 12/24/15 [History] Nitroglycerin [Nitrostat] 0.4 mg SL Q5M PRN 12/24/15 [History] Omeprazole [Prilosec] 20 mg PO DAILY 12/24/15 [History] Pramipexole Di-HCl [Pramipexole Dihydrochloride] 0.5 mg PO BEDTIME 12/24/15 [ History] Rosuvastatin [Crestor] 10 mg PO DAILY 12/24/15 [History] Sertraline HCl 150 mg PO DAILY 12/24/15 [History] Temazepam [Restoril] 15 mg PO BEDTIME 12/24/15 [History] Triamcinolone Acetonide [Nasacort AQ [place]] 2 sprays INH BEDTIME 12/24/15 [ History] ALPRAZolam [Xanax] 0.5 mg PO Q6H PRN 01/27/16 [History] Budesonide [Pulmicort] 0.5 mg NEB BID 01/25/17 [History] Formoterol [Perforomist] 20 mcg NEB BID 01/25/17 [History] Oxymetazoline [Afrin Original 0.05% Nasal [place]] 2 spray NASBOTH BID PRN [History] Tiotropium [place] [Spiriva Respimat] 2 puff INH DAILY 01/25/17 [History] Isosorbide Mononitrate [Imdur] 30 mg PO DAILY 03/10/17 [History] Roflumilast [Daliresp] 500 mcg PO DAILY 03/10/17 [History] - Discharge Summary/Plan Comment DC Time >30 min.: Yes Discharge Summary/Plan Comment: Transfer to swing bed. Ongoing nebs and oxygen. Time spent with patient 40 minutes for exam, documentation, orders. - General Info Date of Service: 03/14/17 Admission Dx/Problem (Free Text: COPD Exacerbation Functional Status: Reports: pain controlled, tolerating diet. Denies: ambulating - Review of Systems General: Reports: Weakness, Fatigue. Denies: Fever HEENT: Reports: no symptoms Pulmonary: Reports: shortness of breath, cough, wheezing Cardiovascular: Denies: Chest Pain, Edema, Lightheadedness Gastrointestinal: Denies: Abdominal pain, Nausea, Vomiting Genitourinary: Reports: no symptoms Musculoskeletal: Reports: no symptoms Skin: Reports: no symptoms - Patient Data Vitals - Most Recent: Last Vital Signs Temp 97.4 F 03/14/17 07:30 Pulse 60 03/14/17 07:30 Resp 16 03/14/17 07:30 BP 144/74 H 03/14/17 07:30 Pulse Ox 98 03/14/17 07:30 Weight - Most Recent: 164 lb 12.8 oz I&O - Last 24 hours: Intake & Output 03/14/17 03/14/17 03/14/17 06:59 14:59 22:59 Intake Total 200 Balance 200 Med Orders - Current: Current Medications Discontinued Medications Acetaminophen (Tylenol) 650 mg PO Q4H PRN PRN Reason: Pain (Mild 1-3)/fever Last Admin: 03/11/17 19:50 Dose: 650 mg Albuterol (Proventil Neb Soln) Confirm Administered Dose 2.5 mg .ROUTE .STK-MED ONE Stop: 03/10/17 14:37 Last Admin: 03/10/17 15:02 Dose: 2.5 mg Albuterol (Proventil Neb Soln) 2.5 mg NEB Q4H PRN PRN Reason: Dyspnea Last Admin: 03/12/17 13:04 Dose: 2.5 mg Albuterol/Ipratropium (Duoneb 3.0-0.5 Mg/3 Ml) 3 ml NEB ONETIME ONE Stop: 03/13/17 10:04 Last Admin: 03/13/17 10:23 Dose: 3 ml Alprazolam (Xanax) 0.5 mg PO Q6H PRN PRN Reason: Anxiety Last Admin: 03/13/17 07:59 Dose: 0.5 mg Alprazolam (Xanax) 0.5 mg PO TID [facility] Last Admin: 03/14/17 07:29 Dose: 0.5 mg Aspirin (Halfprin) 81 mg PO DAILY [facility] Last Admin: 03/14/17 07:29 Dose: 81 mg Budesonide (Pulmicort) 0.5 mg NEB BIDRT [facility] Last Admin: 03/14/17 09:33 Dose: 0.5 mg Enoxaparin Sodium (Lovenox) 40 mg SUBCUT Q24H [facility] Last Admin: 03/13/17 15:49 Dose: 40 mg Levofloxacin/Dextrose 500 mg/ (Premix) 100 mls @ 100 mls/hr IV Q24H [facility] Last Admin: 03/13/17 15:49 Dose: 100 mls/hr Fluconazole/Sodium Chloride (200 mg/ Premix) 100 mls @ 100 mls/hr IV Q24H [facility] Last Admin: 03/13/17 10:23 Dose: 100 mls/hr Fluconazole/Sodium Chloride (200 mg/ Premix) 100 mls @ 100 mls/hr IV Q24H [facility] Last Admin: 03/14/17 08:49 Dose: 100 mls/hr Isosorbide Mononitrate (Imdur) 30 mg PO DAILY [facility] Last Admin: 03/14/17 07:29 Dose: 30 mg Levalbuterol HCl (Xopenex) Confirm Administered Dose 1.25 mg .ROUTE .STK-MED ONE Stop: 03/14/17 09:51 Levothyroxine Sodium (Levothyroxine) 125 mcg PO ACBREAKFAST [facility] Last Admin: 03/14/17 06:33 Dose: 125 mcg Lorazepam (Ativan) 1 mg IVPUSH ONETIME ONE Stop: 03/12/17 13:20 Last Admin: 03/12/17 13:48 Dose: 1 mg Methylprednisolone Sodium Succinate (Solu-Medrol) 125 mg IVPUSH Q24H [facility] Last Admin: 03/14/17 07:29 Dose: 125 mg Methylprednisolone Sodium Succinate (Solu-Medrol) 125 mg IV ONETIME ONE Stop: 03/10/17 16:01 Last Admin: 03/10/17 16:24 Dose: 125 mg Nitroglycerin (Nitrostat) 0.4 mg SL Q5M PRN PRN Reason: Chest Pain Ptom (Formoterol [ (Perforomist] 20 Mcg)) 20 mcg NEB BIDRT [facility] Last Admin: 03/11/17 09:00 Dose: Not Given Ptom [Xopenex Hfa] 2 (Puff)) 2 puff INH Q4H PRN PRN Reason: DYSPNEA Ptom (Roflumilast [ (Daliresp] 1 Tab)) 1 tab PO DAILY [facility] Last Admin: 03/13/17 08:57 Dose: 1 tab Ptom (Rosuvastatin [ (Crestor] 10 Mg)) 10 mg PO DAILY [facility] Last Admin: 03/14/17 07:31 Dose: 10 mg Ptom[Spiriva (Respimat] 2 Puff)) 2 puff INH DAILY [facility] Last Admin: 03/14/17 07:33 Dose: 2 puff Ptom Nasacort Aq 2 sprays .XX BEDTIME [facility] Last Admin: 03/13/17 20:13 Dose: 2 sprays Nf Medication 1 Each Brovana 15mcg/2ml * Own Med 1 each INH BID [facility] Last Admin: 03/14/17 07:33 Dose: 1 each Ptom [Spiriva (Respimat] 2 Puff)) 2 puff INH 1600 [facility] Ptom-Perforomist (20mcg/2ml Neb) 1 each INH BIDRT [facility] Pantoprazole Sodium (Protonix) 40 mg PO 0700 [facility] Last Admin: 04/24/17 06:33 Dose: 40 mg Pramipexole Dihydrochloride (Mirapex) 0.5 mg PO BEDTIME [facility] Last Admin: 03/13/17 20:12 Dose: 0.5 mg Pramipexole Dihydrochloride (Mirapex) Confirm Administered Dose 0.5 mg .ROUTE .STK-MED ONE Stop: 03/10/17 19:45 Last Admin: 03/10/17 19:50 Dose: Not Given Sertraline HCl (Zoloft) 150 mg PO DAILY [facility] Last Admin: 03/14/17 07:30 Dose: 150 mg Sodium Chloride (Saline Flush) 10 ml FLUSH ASDIRECTED PRN PRN Reason: Keep Vein Open Temazepam (Restoril) 15 mg PO 2100 [facility] Last Admin: 03/13/17 21:03 Dose: 15 mg - Exam Quality Assessment: Reports: supplemental oxygen General: Reports: alert, oriented HEENT: Reports: Mucous membr. moist/pink Neck: Reports: supple Lungs: Reports: Decreased breath sounds, Wheezing Cardiovascular: Reports: Regular Rate, Regular Rhythm Abdomen: Reports: bowel sounds present, soft, no tenderness Extremities: Reports: no edema Skin: Reports: warm, dry Neurological: Reports: no new focal deficit *Q Meaningful Use (DIS) - VTE *Q VTE Criteria *Q: - Stroke *Q Stroke Criteria *Q: - AMI *Q AMI Criteria *Q:
[2017-03-14] MEDS ORDERED: PERFOROMIST 20 MCG/2 ML INH SCH (21:00)
[2017-03-15] MEDS ORDERED: SPIRIVA RESPIMAT INH SCH (16:00)
== END 2017-03-14 09:55 | disposition swing bed (61) | DRG 192 ==
LOC: UNDOADMIN 14:11 → CC.MS 14:11
PROVIDERS: ADMIT Family Medicine; ATTEND Family Medicine
DX: J44.0 Chronic obstructive pulmonary disease with (acute) lower respiratory infection (principal); J20.9 Acute bronchitis, unspecified; J44.1 Chronic obstructive pulmonary disease with (acute) exacerbation; N40.1 Benign prostatic hyperplasia with lower urinary tract symptoms; R35.1 Nocturia; F32.9 Major depressive disorder, single episode, unspecified; K21.9 Gastro-esophageal reflux disease without esophagitis; E78.5 Hyperlipidemia, unspecified; I10 Essential (primary) hypertension; E03.9 Hypothyroidism, unspecified; G47.00 Insomnia, unspecified; G25.81 Restless legs syndrome; Z88.0 Allergy status to penicillin; Z88.8 Allergy status to other drugs, medicaments and biological substances; Z79.82 Long term (current) use of aspirin; Z79.899 Other long term (current) drug therapy; Z87.891 Personal history of nicotine dependence
CPT/HCPCS: 36415; 36600; 71020; 71275; 80048; 80053; 82803; 85025; 85027; 86140; 87070; 87205; 94640; 94640-76; 94760; A9270-GY; J1450; J1650; J1956; J2060; J2930; J7620-GY; Q9967

== ENCOUNTER 2017-03-14 10:46 | Inpatient (IN) | payer MEDICARE, OTHER ==
[2017-03-14] MEDS ORDERED: Nitroglycerin 0.4 MG Tab.SL SL PRN ×2 (11:38→15:41)
[2017-03-14] MEDS ORDERED: Albuterol 0.083% 2.5 MG/3 ML Neb Soln NEB PRN (11:38)
[2017-03-14] MEDS ORDERED: XOPENEX INH PRN (11:38)
[2017-03-14] MEDS ORDERED: Acetaminophen 325 MG Tab PO PRN (11:38)
[2017-03-14] MEDS ORDERED: Sodium Chloride 0.9% 10 ML Syringe FLUSH PRN (11:38)
[2017-03-14] MEDS: ALPRAZolam 0.25 MG Tab PO SCH ×2 (14:03→20:14)
[2017-03-14] MEDS ORDERED: Oxymetazoline 0.05% Nasal Spray 15 ML Bottle NASBOTH PRN (15:41)
[2017-03-14] MEDS ORDERED: ALPRAZOLAM 0.5 MG PO PRN (15:41)
[2017-03-14] MEDS ORDERED: Non-Formulary Medication 1 Each (Levalbuterol Tartrate [Xopenex Hfa] 2 PUFF) INH SCH (15:45)
[2017-03-14] MEDS: Levofloxacin/Dextrose 5%-Water 500 MG in Premix Bag 1 BAG IV SCH (16:12)
[2017-03-14] MEDS: Enoxaparin 40 MG/0.4 ML Syringe SUBCUT SCH (16:12)
[2017-03-14] MEDS: Levalbuterol HCl 1.25 MG/3 ML Neb NEB SCH ×2 (16:25→20:14)
[2017-03-14] MEDS ORDERED: Budesonide 0.5 MG/2 ML Neb Susp NEB SCH (20:00)
[2017-03-14] MEDS ORDERED: Temazepam 15 MG Cap PO SCH (20:00)
[2017-03-14] MEDS ORDERED: Pramipexole 0.5 MG Tab PO SCH (20:00)
[2017-03-14] MEDS ORDERED: TRIAMCINOLONE ACETONIDE INH SCH (20:00)
[2017-03-14] MEDS ORDERED: Non-Formulary Medication 1 Each (Formoterol [Perforomist] 20 MCG) NEB SCH (20:00)
[2017-03-14] MEDS: Budesonide 0.5 MG/2 ML Neb Susp NEB SCH (20:14)
[2017-03-14] MEDS: Pramipexole 0.5 MG Tab PO SCH (20:14)
[2017-03-14] MEDS: TRIAMCINOLONE ACETONIDE SCH (20:15)
[2017-03-14] MEDS: PERFOROMIST 20 MCG SCH (20:16)
[2017-03-14] MEDS: Temazepam 15 MG Cap PO SCH (21:15)
[2017-03-15] MEDS ORDERED: Levothyroxine 125 MCG Tab PO SCH (07:00)
[2017-03-15] MEDS: Isosorbide Mononitrate 30 MG Tab.ER PO SCH (07:43)
[2017-03-15] MEDS: Sertraline 100 MG Tab PO SCH (07:43)
[2017-03-15] MEDS: Pantoprazole 40 MG Tab.CR PO SCH (07:43)
[2017-03-15] MEDS: methylPREDNISolone Sodium Succinate 125 MG/2 ML SDV IVPUSH SCH (07:43)
[2017-03-15] MEDS: Levothyroxine 125 MCG Tab PO SCH (07:43)
[2017-03-15] MEDS: Aspirin 81 MG Tab.EC PO SCH (07:44)
[2017-03-15] MEDS: ALPRAZolam 0.25 MG Tab PO SCH ×3 (07:44→20:03)
[2017-03-15] MEDS: Fluconazole/Normal Saline 200 MG in Premix Bag 1 BAG IV SCH (07:47)
[2017-03-15] MEDS: ROFLUMILAST PO SCH (07:57)
[2017-03-15] MEDS: ROSUVASTATIN 10 MG PO SCH (07:57)
[2017-03-15] MEDS ORDERED: Sertraline 100 MG Tab PO SCH (08:00)
[2017-03-15] MEDS ORDERED: Non-Formulary Medication 1 Each (Roflumilast [Daliresp] 500 MCG) PO SCH (08:00)
[2017-03-15] MEDS ORDERED: Non-Formulary Medication 1 Each (Tiotropium Bromide [Spiriva Respimat] 2 PUFF) INH SCH (08:00)
[2017-03-15] MEDS ORDERED: Non-Formulary Medication 1 Each (Omeprazole [Prilosec] 20 MG) PO SCH (08:00)
[2017-03-15] MEDS ORDERED: Isosorbide Mononitrate 30 MG Tab.ER PO SCH (08:00)
[2017-03-15] MEDS ORDERED: Non-Formulary Medication 1 Each (Rosuvastatin [Crestor] 10 MG) PO SCH (08:00)
[2017-03-15] MEDS ORDERED: Aspirin 81 MG Tab.EC PO SCH (08:00)
[2017-03-15] MEDS: PERFOROMIST 20 MCG SCH ×2 (09:13→20:05)
[2017-03-15] MEDS: Budesonide 0.5 MG/2 ML Neb Susp NEB SCH ×2 (09:14→20:04)
[2017-03-15] MEDS: Levalbuterol HCl 1.25 MG/3 ML Neb NEB SCH ×4 (11:22→16:30)
[2017-03-15] MEDS ORDERED: SPIRIVA RESPIMAT INH SCH (16:00)
[2017-03-15] MEDS: Levofloxacin/Dextrose 5%-Water 500 MG in Premix Bag 1 BAG IV SCH (16:50)
[2017-03-15] MEDS: Enoxaparin 40 MG/0.4 ML Syringe SUBCUT SCH (16:50)
[2017-03-15] MEDS: TRIAMCINOLONE ACETONIDE SCH (20:03)
[2017-03-15] MEDS: Pramipexole 0.5 MG Tab PO SCH (20:03)
[2017-03-15] MEDS: Temazepam 15 MG Cap PO SCH (21:10)
[2017-03-16] MEDS: Levothyroxine 125 MCG Tab PO SCH (06:51)
[2017-03-16] MEDS: Pantoprazole 40 MG Tab.CR PO SCH (06:51)
[2017-03-16 07:26] VITALS: BP 164/79
[2017-03-16] MEDS: Fluconazole/Normal Saline 200 MG in Premix Bag 1 BAG IV SCH (07:44)
[2017-03-16] MEDS: methylPREDNISolone Sodium Succinate 125 MG/2 ML SDV IVPUSH SCH (07:45)
[2017-03-16] MEDS: ALPRAZolam 0.25 MG Tab PO SCH (07:45)
[2017-03-16] MEDS: Isosorbide Mononitrate 30 MG Tab.ER PO SCH (07:45)
[2017-03-16] MEDS: Sertraline 100 MG Tab PO SCH (07:45)
[2017-03-16] MEDS: Aspirin 81 MG Tab.EC PO SCH (07:45)
[2017-03-16] MEDS: ROSUVASTATIN 10 MG PO SCH (07:46)
[2017-03-16] MEDS: ROFLUMILAST PO SCH (07:47)
[2017-03-16] MEDS: PERFOROMIST 20 MCG SCH (08:48)
[2017-03-16] MEDS: Budesonide 0.5 MG/2 ML Neb Susp NEB SCH (08:48)
--- NOTE | 2017-03-16 09:45 | PCM.DCSUM1 ---
Discharge Summary - Hospital Course Free Text/Narrative:: Patient admitted to acute inpatient for COPD Exacerbation. Had been at his son' s home where a chimney was being taken down and he feels the dust triggered a reaction. He was tight, wheezy with decreased air exchange. Labs were normal on admit. Was started on Solu Medrol and his usual respiratory meds. Was hypoxic and unable to be weaned off oxygen nor tolerate any ambulation due to shortness of breath. - Discharge Data Discharge Date: 03/16/17 Discharge Disposition: Home, Self-Care 01 Condition: Fair - Patient Summary/Data Complications: none Consults: Consultations 03/14/17 11:38 Respiratory Care Assess and Treatment [CONS] Routine Hospital Course: Patient has slowly increased ambulation during swing bed stay. Continued to require oxygen as his sats would drop in to the low 80s. Given Solu Medrol and he does feel better than on admission time. Vitals have remained stable, afebrile. No changes. Will require oxygen on discharge due to desaturation while ambulating and with minimal activity. Did have a face to face conversation with patient about need for oxygen at home and he is comfortable with that. RT will assess and evaluate for need for oxygen at home. - Patient Instructions Diet: Usual Diet as Tolerated Activity: As Tolerated - Discharge Plan Prescriptions/Med Rec: Prednisone [IMW: predniSONE] 20 mg PO WITHBREAKFAST #5 tab Home Medications: Home Meds Aspirin [Halfprin] 81 mg PO DAILY 12/24/15 [History] Levalbuterol Tartrate [Xopenex HFA] 2 puff INH Q4HR 12/24/15 [History] Levothyroxine 125 mcg PO ACBREAKFAST 12/24/15 [History] Nitroglycerin [Nitrostat] 0.4 mg SL Q5M PRN 12/24/15 [History] Omeprazole [Prilosec] 20 mg PO DAILY 12/24/15 [History] Pramipexole Di-HCl [Pramipexole Dihydrochloride] 0.5 mg PO BEDTIME 12/24/15 [ History] Rosuvastatin [Crestor] 10 mg PO DAILY 12/24/15 [History] Sertraline HCl 150 mg PO DAILY 12/24/15 [History] Temazepam [Restoril] 15 mg PO BEDTIME 12/24/15 [History] Triamcinolone Acetonide [Nasacort AQ [place]] 2 sprays INH BEDTIME 12/24/15 [ History] ALPRAZolam [Xanax] 0.5 mg PO Q6H PRN 01/27/16 [History] Budesonide [Pulmicort] 0.5 mg NEB BID 01/25/17 [History] Formoterol [Perforomist] 20 mcg NEB BID 01/25/17 [History] Oxymetazoline [Afrin Original 0.05% Nasal [place]] 2 spray NASBOTH BID PRN [History] Tiotropium [place] [Spiriva Respimat] 2 puff INH DAILY 01/25/17 [History] Isosorbide Mononitrate [Imdur] 30 mg PO DAILY 03/10/17 [History] Roflumilast [Daliresp] 500 mcg PO DAILY 03/10/17 [History] Prednisone [IMW: predniSONE] 20 mg PO WITHBREAKFAST #5 tab 03/16/17 [Rx] Patient Handouts: Chronic Obstructive Pulmonary Disease Exacerbation, Easy-to- Read, Chronic Obstructive Pulmonary Disease, [id number] Referrals: Bonifacio Fry MD [Primary Care Provider] - (Follow up with Dr. Fry in one week) - Discharge Summary/Plan Comment DC Time >30 min.: No Discharge Summary/Plan Comment: Discharge home. Will continue with prednisone 20 mg daily for 5 days. Oxygen per RT assessment and need. Follow up with Dr. Fry in one week. - General Info Date of Service: 03/16/17 Admission Dx/Problem (Free Text: COPD Exacerbation Functional Status: Reports: pain controlled, tolerating diet, ambulating - Review of Systems General: Reports: Fatigue. Denies: Fever, Weakness HEENT: Denies: sinus congestion, sore throat, rhinitis Pulmonary: Reports: shortness of breath, cough, wheezing Cardiovascular: Denies: Chest Pain, Edema, Lightheadedness Gastrointestinal: Denies: Abdominal pain, Nausea, Vomiting Genitourinary: Reports: no symptoms Musculoskeletal: Reports: no symptoms Skin: Reports: no symptoms Neurological: Reports: No Symptoms Psychiatric: Reports: no symptoms - Patient Data Vitals - Most Recent: Last Vital Signs Temp 97.0 F 03/16/17 07:25 Pulse 55 L 03/16/17 07:25 Resp 16 03/16/17 07:25 BP 164/79 H 03/16/17 07:25 Pulse Ox 98 03/16/17 07:25 Weight - Most Recent: 164 lb 1.6 oz I&O - Last 24 hours: Intake & Output 03/15/17 03/16/17 03/16/17 22:59 06:59 14:59 Intake Total 240 Balance 240 Med Orders - Current: Current Medications Acetaminophen (Tylenol) 650 mg PO Q4H PRN PRN Reason: Pain (Mild 1-3)/fever Albuterol (Proventil Neb Soln) 2.5 mg NEB Q4H PRN PRN Reason: Dyspnea Alprazolam (Xanax) 0.5 mg PO TID [facility] Last Admin: 03/16/17 07:45 Dose: 0.5 mg Aspirin (Halfprin) 81 mg PO DAILY [facility] Last Admin: 03/16/17 07:45 Dose: 81 mg Budesonide (Pulmicort) 0.5 mg NEB BIDRT [facility] Last Admin: 03/16/17 08:48 Dose: 0.5 mg Enoxaparin Sodium (Lovenox) 40 mg SUBCUT Q24H [facility] Last Admin: 03/15/17 16:50 Dose: 40 mg Fluconazole/Sodium Chloride (200 mg/ Premix) 100 mls @ 100 mls/hr IV Q24H [facility] Last Admin: 03/16/17 07:44 Dose: 100 mls/hr Levofloxacin/Dextrose 500 mg/ (Premix) 100 mls @ 100 mls/hr IV Q24H [facility] Last Admin: 03/15/17 16:50 Dose: 100 mls/hr Isosorbide Mononitrate (Imdur) 30 mg PO DAILY [facility] Last Admin: 03/16/17 07:45 Dose: 30 mg Levalbuterol HCl (Xopenex) 1.25 mg NEB TID@1100,1400,1600 [facility] Last Admin: 03/15/17 16:30 Dose: 1.25 mg Levothyroxine Sodium (Levothyroxine) 125 mcg PO ACBREAKFAST [facility] Last Admin: 03/16/17 06:51 Dose: 125 mcg Methylprednisolone Sodium Succinate (Solu-Medrol) 125 mg IVPUSH Q24H [facility] Last Admin: 03/16/17 07:45 Dose: 125 mg Nitroglycerin (Nitrostat) 0.4 mg SL Q5M PRN PRN Reason: Chest Pain Ptom [Xopenex Hfa] 2 (Puff)) 2 puff INH Q4H PRN PRN Reason: DYSPNEA Ptom (Roflumilast [ (Daliresp] 1 Tab)) 1 tab PO DAILY [facility] Last Admin: 03/16/17 07:47 Dose: 1 tab Ptom (Rosuvastatin [ (Crestor] 10 Mg)) 10 mg PO DAILY [facility] Last Admin: 03/16/17 07:46 Dose: 10 mg Ptom (Triamcinolone (Acetonide 2 Sprays)) 2 sprays .XX BEDTIME [facility] Last Admin: 03/15/17 20:03 Dose: 2 sprays Ptom [Spiriva (Respimat] 2 Puff)) 2 puff INH 1600 [facility] Last Admin: 03/15/17 17:33 Dose: 2 puff Ptom[Perforomist] 20 (Mcg)) 20 mcg NEB BIDRT [facility] Last Admin: 03/16/17 08:48 Dose: 20 mcg Oxymetazoline HCl (Afrin Original 0.05% Nasal [place]) 0 ml NASBOTH BID PRN PRN Reason: Congestion Pantoprazole Sodium (Protonix) 40 mg PO 0700 [facility] Last Admin: 03/16/17 06:51 Dose: 40 mg Pramipexole Dihydrochloride (Mirapex) 0.5 mg PO BEDTIME [facility] Last Admin: 03/15/17 20:03 Dose: 0.5 mg Sertraline HCl (Zoloft) 150 mg PO DAILY [facility] Last Admin: 03/16/17 07:45 Dose: 150 mg Sodium Chloride (Saline Flush) 10 ml FLUSH ASDIRECTED PRN PRN Reason: Keep Vein Open Temazepam (Restoril) 15 mg PO 2100 [facility] Last Admin: 03/15/17 21:10 Dose: 15 mg Discontinued Medications Levalbuterol HCl (Xopenex) 1.25 mg NEB TIDRT [facility] Last Admin: 03/15/17 11:31 Dose: Not Given - Exam Quality Assessment: Reports: supplemental oxygen General: Reports: alert, oriented HEENT: Reports: Mucous membr. moist/pink Neck: Reports: supple Lungs: Reports: Decreased breath sounds, Wheezing Cardiovascular: Reports: Regular Rate, Regular Rhythm Abdomen: Reports: bowel sounds present, soft, no tenderness Skin: Reports: warm, dry Psy/Mental Status: Reports: alert, normal affect, normal mood *Q Meaningful Use (DIS) - VTE *Q VTE Criteria *Q: - Stroke *Q Stroke Criteria *Q: - AMI *Q AMI Criteria *Q:
== END 2017-03-16 10:55 | disposition home or self-care (01) | DRG 192 ==
LOC: CC.MS 11:38
PROVIDERS: ADMIT Family Medicine; ATTEND Family Medicine
DX: J44.1 Chronic obstructive pulmonary disease with (acute) exacerbation (principal); N40.1 Benign prostatic hyperplasia with lower urinary tract symptoms; R35.1 Nocturia; H26.9 Unspecified cataract; F32.9 Major depressive disorder, single episode, unspecified; K21.9 Gastro-esophageal reflux disease without esophagitis; I10 Essential (primary) hypertension; E03.9 Hypothyroidism, unspecified; G47.00 Insomnia, unspecified; G25.81 Restless legs syndrome
CPT/HCPCS: 94640; 94640-76; 94667; 94668; 94760; A9270-GY; J1450; J1650; J1956; J2930

== ENCOUNTER 2018-03-01 10:45 | Emergency (ER) | payer MEDICARE, OTHER ==
[2018-03-01] MEDS: Aspirin 81 MG Tab.Chew PO ONE (10:55)
[2018-03-01 11:27] LABS: CHLORIDE,CL 102 mEq/L (98-106); SODIUM,NA 141 mEq/L (136-145)
[2018-03-01 12:02] VITALS: BP 148/90
--- NOTE | 2018-03-01 12:07 | EDM.PDOC ---
ED HPI GENERAL MEDICAL PROBLEM - General Chief Complaint: Chest Pain Stated Complaint: CP Time Seen by Provider: 03/01/18 11:01 Source of Information: Reports: Patient, Family History Limitations: Reports: No Limitations - History of Present Illness INITIAL COMMENTS - FREE TEXT/NARRATIVE: Yasir is a 73 yo male who presents to the ER with complaints of chest pain. States he was out moving his camper this morning and started to develop some midsternal chest pain. Admits to dealing with a lot of anxiety as well and isn' t sure if this has anything to do with it. Feels anxious but admits he always does. States the pain doesn't radiate anywhere. States it worsens with a deep breath. Suffers from COPD and always has some shortness of breath with exertion but denies any worsening of his breathing today. Onset: Today Duration: Improving Location: Reports: Chest Quality: Reports: Sharp Worsens with: Reports: Breathing (deep) Associated Symptoms: Reports: Chest Pain, Shortness of Breath (chronic), Syncope (recurrent and chronic, has underwent multiple test and seeing cardiology). Denies: Cough, Diaphoresis, Fever/Chills, Headaches, Nausea/ Vomiting chest Pain Score (Numeric/FACES): 2 - Related Data Allergies Allergy/AdvReac Type Severity Reaction Status Date / Time Penicillins Allergy Severe Swollen Verified 03/14/17 11:37 Tongue simvastatin [From Zocor] Allergy Mild Itching Verified 03/14/17 11:37 roflumilast [From Daliresp] AdvReac Abdominal Verified 03/14/17 11:37 Pain Home Meds: Home Meds Aspirin [Halfprin] 81 mg PO DAILY 12/24/15 [History] Levalbuterol Tartrate [Xopenex HFA] 2 puff INH Q4HR 12/24/15 [History] Levothyroxine 125 mcg PO ACBREAKFAST 12/24/15 [History] Nitroglycerin [Nitrostat] 0.4 mg SL Q5M PRN 12/24/15 [History] Omeprazole [Prilosec] 20 mg PO DAILY 12/24/15 [History] Pramipexole Di-HCl [Pramipexole Dihydrochloride] 0.5 mg PO BEDTIME 12/24/15 [ History] Rosuvastatin [Crestor] 10 mg PO DAILY 12/24/15 [History] Sertraline HCl 150 mg PO DAILY 12/24/15 [History] Temazepam [Restoril] 15 mg PO BEDTIME 12/24/15 [History] Triamcinolone Acetonide [Nasacort AQ [place]] 2 sprays INH BEDTIME 12/24/15 [ History] ALPRAZolam [Xanax] 0.5 mg PO Q6H PRN 01/27/16 [History] Budesonide [Pulmicort] 0.5 mg NEB BID 01/25/17 [History] Formoterol [Perforomist] 20 mcg NEB BID 01/25/17 [History] Oxymetazoline [Afrin Original 0.05% Nasal [place]] 2 spray NASBOTH BID PRN [History] Tiotropium [place] [Spiriva Respimat] 2 puff INH DAILY 01/25/17 [History] Isosorbide Mononitrate [Imdur] 30 mg PO DAILY 03/10/17 [History] Roflumilast [Daliresp] 500 mcg PO DAILY 03/10/17 [History] Prednisone [IMW: predniSONE] 20 mg PO WITHBREAKFAST #5 tab 03/16/17 [Rx] Past Medical History HEENT History: Reports: Impaired Vision Cardiovascular History: Reports: High Cholesterol, Hypertension Respiratory History: Reports: Asthma, COPD Gastrointestinal History: Reports: GERD Neurological History: Reports: Concussion Psychiatric History: Reports: Anxiety, Depression Endocrine/Metabolic History: Reports: Hypothyroidism - Infectious Disease History Infectious Disease History: Reports: Shingles - Past Surgical History HEENT Surgical History: Reports: Cataract Surgery Cardiovascular Surgical History: Reports: Other (See Below) Social & Family History - Family History Family Medical History: Noncontributory - Tobacco Use Smoking Status *Q: Former Smoker Years of Tobacco use: 38 Packs/Tins Daily: 3 Used Tobacco, but Quit: Yes Month/Year Tobacco Last Used: 20 years ago Second Hand Smoke Exposure: No - Caffeine Use Caffeine Use: Reports: Coffee - Alcohol Use Days Per Week of Alcohol Use: 7 Number of Drinks Per Day: 1 Total Drinks Per Week: 7 - Recreational Drug Use Recreational Drug Use: No ED ROS GENERAL - Review of Systems Review Of Systems: ROS reveals no pertinent complaints other than HPI. Constitutional: Reports: No Symptoms HEENT: Reports: No Symptoms Respiratory: Reports: Shortness of Breath, Pleuritic Chest Pain. Denies: Wheezing, Cough Cardiovascular: Reports: Chest Pain, Syncope. Denies: Lightheadedness, Palpitations GI/Abdominal: Reports: No Symptoms ED EXAM, GENERAL - Physical Exam Exam: See Below Exam Limited By: No Limitations General Appearance: Alert, WD/WN, No Apparent Distress Ears: Normal External Exam, Normal Canal, Hearing Grossly Normal, Normal TMs Nose: Normal Inspection, Normal Mucosa, No Blood Throat/Mouth: Normal Inspection, Normal Lips, Normal Teeth, Normal Gums, Normal Oropharynx, Normal Voice, No Airway Compromise Head: Atraumatic, Normocephalic Neck: Normal Inspection, Supple Respiratory/Chest: No Respiratory Distress, Lungs Clear, Normal Breath Sounds, No Accessory Muscle Use, Other (mild discomfort with palpation to midsternal area) Cardiovascular: Normal Peripheral Pulses, Regular Rate, Rhythm, No Edema, No Murmur GI/Abdominal: Normal Bowel Sounds, Soft, No Organomegaly, No Distention, No Abnormal Bruit Extremities: Normal Inspection, No Pedal Edema Neurological: Alert, Oriented, Normal Cognition, No Motor/Sensory Deficits Psychiatric: Normal Affect, Normal Mood Skin Exam: Warm, Dry, Intact, Normal Color, No Rash EKG INTERPRETATION EKG Date: 03/01/18 Rhythm: NSR Course - Vital Signs Last Recorded V/S: Last Vital Signs Temp 97.3 F 03/01/18 10:50 Pulse 67 03/01/18 11:50 Resp 18 03/01/18 10:50 BP 148/90 H 03/01/18 11:50 Pulse Ox 91 L 03/01/18 11:50 - Orders/Labs/Meds Orders: Active Orders 24 hr Category Date Time Status Chest 2V [CR] Stat Exams 03/01/18 11:09 Taken Labs: Laboratory Tests 03/01/18 03/01/18 03/01/18 Range/Units 11:08 11:18 11:18 WBC 3.3 L (5.0-10.0) 10^3/uL RBC 3.74 L (4.50-6.00) 10^6/uL Hgb 12.3 L (14.0-18.0) g/dL Hct 35.0 L (40.0-54.0) % MCV 93.6 (82.0-94.0) fL MCH 32.9 H (27.0-32.0) pg MCHC 35.1 (33.0-38.0) g/dL RDW Coeff of Arun 13.1 (11.0-15.0) % Plt Count 146 L (150-400) 10^3/uL Neut % (Auto) 73.0 (35-85) % Lymph % (Auto) 18.9 (10-55) % [place] % (Auto) 6.9 (0-16) % Eos % (Auto) 0.9 (0-5) % Baso % (Auto) 0.3 (0-3) % Neut # (Auto) 2.43 (1.80-7.00) 10^3/uL Lymph # (Auto) 0.63 L (1.00-4.80) 10^3/uL [place] # (Auto) 0.23 (0.00-0.80) 10^3/uL Eos # (Auto) 0.03 (0.00-0.45) 10^3/uL Baso # (Auto) 0.01 10^3/uL PT 10.0 (9.7-12.3) SEC INR 0.96 (0.92-1.18) APTT 25.0 (23.2-32.3) SEC Sodium 141 (136-145) mEq/L Potassium 3.9 (3.5-5.0) mEq/L Chloride 102 (98-106) mEq/L Carbon Dioxide 27 (21-32) mmol/L BUN 19 H D (7-18) mg/dL Creatinine 1.2 (0.7-1.3) mg/dL Est Cr Clr Drug Dosing 57.12 mL/min Estimated GFR (MDRD) 60 (>=60) mL/min Glucose 100 H (75-99) mg/dL Calcium 8.9 (8.4-10.1) mg/dL Lactate Dehydrogenase 177 (100-190) U/L Creatine Kinase 84 (35-232) U/L Troponin I < 0.017 (0.00-0.06) ng/mL C-Reactive Protein 0.6 (0.2-0.8) mg/dL Meds: Medications Discontinued Medications Generic Name Dose Route Start Last Admin Trade Name Freq PRN Reason Stop Dose Admin Aspirin 324 mg 03/01/18 11:45 03/01/18 10:55 Aspirin PO 03/01/18 11:46 324 mg ONETIME ONE Administration Departure - Departure Time of Disposition: 12:08 Disposition: Home, Self-Care 01 Clinical Impression: Pain of anterior chest wall with respiration, Chest pain, atypical Instructions: Nonspecific Chest Pain, [id number], Chest Wall Pain, Easy-to- Read Referrals: Bonifacio Fry MD [Primary Care Provider] - Additional Instructions: 1) Rest today 2) If symptoms worsen or has any increased shortness of breath, advise returning to ER 3) Recheck with Dr. Fry in 2 weeks, sooner if any concerns 4) Continue taking medications as directed 5) Recommend discussing anxiety with Dr. Fry as well - Problem List & Annotations (1) Chest pain, atypical SNOMED Code(s): 212621826 Code(s): R07.89 - OTHER CHEST PAIN Status: Acute Current Visit: Yes (2) Pain of anterior chest wall with respiration SNOMED Code(s): 525608558 Code(s): R07.1 - CHEST PAIN ON BREATHING Status: Acute Current Visit: Yes - Problem List Review Problem List Initiated/Reviewed/Updated: Yes - My Orders Last 24 Hours: My Active Orders 03/01/18 11:09 Chest 2V [CR] Stat - Assessment/Plan Last 24 Hours: My Active Orders 03/01/18 11:09 Chest 2V [CR] Stat Plan: Yasir's discomfort improved while in ER. Laboratory work was grossly unremarkable besides WBC being 3.3. discussed with Dr. Fry and recommends recheck in 2 weeks, sooner if any concerns. Will discharge home at this time.
== END 2018-03-01 12:15 | disposition home or self-care (01) ==
LOC: CC.ED 10:45
DX: R07.89 Other chest pain (principal); E78.00 Pure hypercholesterolemia, unspecified; I10 Essential (primary) hypertension; J44.9 Chronic obstructive pulmonary disease, unspecified; E03.9 Hypothyroidism, unspecified; Z88.0 Allergy status to penicillin; Z88.8 Allergy status to other drugs, medicaments and biological substances; Z79.82 Long term (current) use of aspirin; Z79.899 Other long term (current) drug therapy; Z87.891 Personal history of nicotine dependence
CPT/HCPCS: 36415; 71046; 80048; 82550; 83615; 84484; 85025; 85610; 85730; 86140; 93005; 99285; A9270-GY

== ENCOUNTER 2019-06-19 13:33 | Emergency (ER) | payer MEDICARE, OTHER ==
[2019-06-19 13:50] VITALS: BP 138/64; PULSE 78
--- NOTE | 2019-06-19 14:00 | EDM.PDOC ---
ED HPI GENERAL MEDICAL PROBLEM - General Stated Complaint: LOW OXYGEN Time Seen by Provider: 06/19/19 13:45 Source of Information: Reports: Patient History Limitations: Reports: No Limitations - History of Present Illness INITIAL COMMENTS - FREE TEXT/NARRATIVE: Yasir is a 74 yo male who presents to the ED ambulatory via private vehicle with increased chest congestion and shortness of breath. He reports he is on O2 at home. Reports he only uses the oxygen when he feels short of breath. Reports he was up walking today and was getting low O2 sat readings in upper 70s. He reports he notified his PCP who recommended he be seen and evaluated. He reports he has had increasing chest and sinus congestion the past few days. Has had productive cough. No fevers. Mildly increased shortness of breath. No chest pain, N/V/D, abdominal pain, urinary symptoms. Denies any other complaints. Duration: Constant, Getting Worse Associated Symptoms: Reports: Cough, cough w sputum, Shortness of Breath. Denies: Chest Pain, Fever/Chills - Related Data Allergies Allergy/AdvReac Type Severity Reaction Status Date / Time Penicillins Allergy Severe Swollen Verified 06/19/19 14:02 Tongue simvastatin [From Zocor] Allergy Mild Itching Verified 06/19/19 14:02 roflumilast [From Daliresp] AdvReac Abdominal Verified 06/19/19 14:02 Pain Home Meds: Home Meds Aspirin [Halfprin] 81 mg PO DAILY 12/24/15 [History] Levothyroxine 125 mcg PO ACBREAKFAST 12/24/15 [History] Nitroglycerin [Nitrostat] 0.4 mg SL Q5M PRN 12/24/15 [History] Omeprazole [Prilosec] 20 mg PO DAILY 12/24/15 [History] Pramipexole Di-HCl [Pramipexole Dihydrochloride] 0.5 mg PO BEDTIME 12/24/15 [ History] Rosuvastatin [Crestor] 10 mg PO DAILY 12/24/15 [History] Sertraline HCl 150 mg PO DAILY 12/24/15 [History] Temazepam [Restoril] 15 mg PO BEDTIME 12/24/15 [History] ALPRAZolam [Xanax] 0.5 mg PO Q6H PRN 01/27/16 [History] Oxymetazoline [Afrin Original 0.05% Nasal [place]] 2 spray NASBOTH BID PRN [History] Tiotropium [place] [Spiriva Respimat] 2 puff INH DAILY 01/25/17 [History] Carbidopa/Levodopa [Carbidopa-Levodopa 25-100] 1 each PO BID 03/21/18 [History] Albuterol [Ventolin HFA] 2 puff INH Q6HR PRN 05/04/19 [History] Budesonide/Formoterol [Symbicort 160-4.5 MCG] 2 puff INH Q12HR 05/04/19 [History ] Budesonide [Pulmicort] 0.5 mg IH BID 06/19/19 [History] Cefuroxime [Ceftin] 250 mg PO BID 10 Days #20 tab 06/19/19 [Rx] predniSONE [Prednisone] 20 mg PO DAILY #5 tablet 06/19/19 [Rx] Past Medical History HEENT History: Reports: Impaired Vision Cardiovascular History: Reports: High Cholesterol, Hypertension Respiratory History: Reports: Asthma, COPD Other Respiratory History: [facility] history: implantable loop monitor--patient said because he "passed out", reflux, hypothyroid, COPD, hyperlipidemia, hypertension in [facility] chart, restless leg. Gastrointestinal History: Reports: GERD Neurological History: Reports: Concussion Psychiatric History: Reports: Anxiety, Depression Endocrine/Metabolic History: Reports: Hypothyroidism - Infectious Disease History Infectious Disease History: Reports: Shingles - Past Surgical History HEENT Surgical History: Reports: Cataract Surgery Cardiovascular Surgical History: Reports: Other (See Below) Social & Family History - Family History Family Medical History: Noncontributory - Caffeine Use Caffeine Use: Reports: Coffee ED ROS GENERAL - Review of Systems Review Of Systems: ROS reveals no pertinent complaints other than HPI. ED EXAM, GENERAL - Physical Exam Exam: See Below Exam Limited By: No Limitations General Appearance: Alert, WD/WN, No Apparent Distress Ears: Normal External Exam, Normal Canal, Hearing Grossly Normal, Normal TMs Nose: Nasal Swelling, Nasal Drainage Throat/Mouth: Normal Inspection, Normal Lips, Normal Teeth, Normal Gums, Normal Oropharynx, Normal Voice, No Airway Compromise Head: Atraumatic, Normocephalic Neck: Normal Inspection, Supple, Non-Tender, Full Range of Motion Respiratory/Chest: No Respiratory Distress, No Accessory Muscle Use, Decreased Breath Sounds, Rhonchi, Wheezing Cardiovascular: Normal Peripheral Pulses, Regular Rate, Rhythm, No Edema, No Gallop, No JVD, No Murmur, No Rub GI/Abdominal: Normal Bowel Sounds, Soft, Non-Tender, No Organomegaly, No Distention, No Abnormal Bruit, No Mass Neurological: Alert, Oriented, CN II-XII Intact, Normal Cognition, Normal Gait, Normal Reflexes, No Motor/Sensory Deficits Lymphatic: No Adenopathy Course - Vital Signs Last Recorded V/S: Last Vital Signs Temp 97.1 F 06/19/19 13:35 Pulse 78 06/19/19 13:35 Resp 16 06/19/19 14:08 BP 138/64 06/19/19 13:35 Pulse Ox 18 L 06/19/19 14:58 - Orders/Labs/Meds Labs: Laboratory Tests 06/19/19 06/19/19 Range/Units 13:53 13:53 WBC 5.5 (5.0-10.0) 10^3/uL RBC 4.10 L (4.50-6.00) 10^6/uL Hgb 13.7 L (14.0-18.0) g/dL Hct 39.2 L (40.0-54.0) % MCV 95.6 H (82.0-94.0) fL MCH 33.4 H (27.0-32.0) pg MCHC 34.9 (33.0-38.0) g/dL RDW Coeff of Arun 13.3 (11.0-15.0) % Plt Count 152 (150-400) 10^3/uL Neut % (Auto) 82.4 (35-85) % Lymph % (Auto) 11.9 (10-55) % [place] % (Auto) 5.1 (0-16) % Eos % (Auto) 0.4 (0-5) % Baso % (Auto) 0.2 (0-3) % Neut # (Auto) 4.49 (1.80-7.00) 10^3/uL Lymph # (Auto) 0.65 L (1.00-4.80) 10^3/uL [place] # (Auto) 0.28 (0.00-0.80) 10^3/uL Eos # (Auto) 0.02 (0.00-0.45) 10^3/uL Baso # (Auto) 0.01 10^3/uL Sodium 138 (136-145) mEq/L Potassium 4.5 (3.5-5.0) mEq/L Chloride 100 (98-106) mEq/L Carbon Dioxide 32 (21-32) mmol/L BUN 20 H (7-18) mg/dL Creatinine 1.0 (0.7-1.3) mg/dL Est Cr Clr Drug Dosing 68.38 mL/min Estimated GFR (MDRD) > 60 (>=60) mL/min Glucose 116 H (75-99) mg/dL Calcium 9.2 (8.4-10.1) mg/dL Troponin I < 0.017 (0.00-0.06) ng/mL C-Reactive Protein 2.4 H (0.2-0.8) mg/dL Departure - Departure Time of Disposition: 14:56 Disposition: Home, Self-Care 01 Condition: Good Clinical Impression: URI (upper respiratory infection) Qualifiers: URI type: unspecified URI Qualified Code(s): J06.9 - Acute upper respiratory infection, unspecified COPD (chronic obstructive pulmonary disease) Qualifiers: COPD type: unspecified COPD Qualified Code(s): J44.9 - Chronic obstructive pulmonary disease, unspecified - Discharge Information *PRESCRIPTION DRUG MONITORING PROGRAM REVIEWED*: Not Applicable *COPY OF PRESCRIPTION DRUG MONITORING REPORT IN PATIENT GEGE: Not Applicable Prescriptions: Cefuroxime [Ceftin] 250 mg PO BID 10 Days #20 tab predniSONE [Prednisone] 20 mg PO DAILY #5 tablet Instructions: Upper Respiratory Infection, Adult, [id number] Referrals: Lorraine Middleton MD [Primary Care Provider] - Forms: ED Department Discharge Additional Instructions: - Ceftin twice daily x 10 days - Prednisone daily x days - Scripts can be picked up at pharmacy - Routine decongestants as needed - O2 as needed for shortness of breath - Monitor elbow for worsening of redness - Follow up with PCP for recheck if symptoms worsen or do not improve - Return to ED for any emergent needs
[2019-06-19 14:11] LABS: CHLORIDE,CL 100 mEq/L (98-106); SODIUM,NA 138 mEq/L (136-145)
== END 2019-06-19 15:05 | disposition home or self-care (01) ==
LOC: CC.ED 13:33
DX: J44.9 Chronic obstructive pulmonary disease, unspecified (principal); J06.9 Acute upper respiratory infection, unspecified; E78.00 Pure hypercholesterolemia, unspecified; I10 Essential (primary) hypertension; K21.9 Gastro-esophageal reflux disease without esophagitis; F41.9 Anxiety disorder, unspecified; F32.9 Major depressive disorder, single episode, unspecified; E03.9 Hypothyroidism, unspecified; Z99.81 Dependence on supplemental oxygen; Z88.0 Allergy status to penicillin; Z88.8 Allergy status to other drugs, medicaments and biological substances; Z79.82 Long term (current) use of aspirin; Z79.899 Other long term (current) drug therapy
CPT/HCPCS: 36415; 71046; 80048; 84484; 85025; 86140; 93005; 93010; 99284; 99284-25

== ENCOUNTER 2019-11-27 14:58 | Emergency (ER) | payer MEDICARE, OTHER ==
[2019-11-27 15:12] VITALS: BP 162/88; PULSE 81
[2019-11-27 15:59] LABS: CHLORIDE,CL 104 mEq/L (98-106); SODIUM,NA 143 mEq/L (136-145)
--- NOTE | 2019-11-27 16:54 | EDM.PDOC ---
ED HPI GENERAL MEDICAL PROBLEM - General Chief Complaint: Chest Pain Stated Complaint: CHEST Time Seen by Provider: 11/27/19 15:30 Source of Information: Reports: Patient, Family () History Limitations: Reports: No Limitations - History of Present Illness INITIAL COMMENTS - FREE TEXT/NARRATIVE: Yasir is a 74 yo male who presents to the ER, accompanied by , with complaints of chest pressure with taken in a deep breath. States it has been like that for the past couple days. He also reports head congestion, sinus pressure and fullness in his ears; states "I feel like my head is going to explode." Denies sore throat. Reports occasional dry cough. Has COPD and states he is always short of breath but is more short of breath now than usual. Is on home O2. Is not sure if he has been having fevers but does report the "chills" off and on past few days. Reports he has been taking Tylenol but is doesn't seem to be helping. He was seen in the ED for the same thing back in May and seemed to get better on medications. Treatments SIGNALER: Reports: Acetaminophen - Related Data Allergies Allergy/AdvReac Type Severity Reaction Status Date / Time Penicillins Allergy Severe Swollen Verified 11/27/19 15:12 Tongue simvastatin [From Zocor] Allergy Mild Itching Verified 11/27/19 15:12 roflumilast [From Daliresp] AdvReac Abdominal Verified 11/27/19 15:12 Pain Home Meds: Home Meds Aspirin [Halfprin] 81 mg PO DAILY 12/24/15 [History] Levothyroxine 125 mcg PO ACBREAKFAST 12/24/15 [History] Nitroglycerin [Nitrostat] 0.4 mg SL Q5M PRN 12/24/15 [History] Omeprazole [Prilosec] 20 mg PO DAILY 12/24/15 [History] Pramipexole Di-HCl [Pramipexole Dihydrochloride] 0.5 mg PO BEDTIME 12/24/15 [ History] Sertraline HCl 150 mg PO DAILY 12/24/15 [History] ALPRAZolam [Xanax] 0.5 mg PO Q6H PRN 01/27/16 [History] Tiotropium Edison [Spiriva Respimat] 2 puff INH DAILY 01/25/17 [History] Carbidopa/Levodopa [Carbidopa-Levodopa 25-100] 1 each PO TID 03/21/18 [History] Budesonide/Formoterol [Symbicort 160-4.5 MCG] 2 puff INH Q12HR 05/04/19 [History ] Budesonide [Pulmicort] 0.5 mg IH BID 06/19/19 [History] Past Medical History HEENT History: Reports: Impaired Vision Cardiovascular History: Reports: High Cholesterol, Hypertension Respiratory History: Reports: Asthma, COPD, SOB Other Respiratory History: [facility] history: implantable loop monitor--patient said because he "passed out", reflux, hypothyroid, COPD, hyperlipidemia, hypertension in [facility] chart, restless leg. Gastrointestinal History: Reports: GERD Neurological History: Reports: Concussion Psychiatric History: Reports: Anxiety, Depression Endocrine/Metabolic History: Reports: Hypothyroidism - Infectious Disease History Infectious Disease History: Reports: Shingles - Past Surgical History HEENT Surgical History: Reports: Cataract Surgery Cardiovascular Surgical History: Reports: Other (See Below) Other Cardiovascular Surgeries/Procedures: angiogram Respiratory Surgical History: Reports: None GI Surgical History: Reports: None Neurological Surgical History: Reports: None Social & Family History - Family History Family Medical History: Noncontributory - Tobacco Use Smoking Status *Q: Former Smoker Used Tobacco, but Quit: Yes Month/Year Tobacco Last Used: 1999 - Caffeine Use Caffeine Use: Reports: Coffee ED ROS GENERAL - Review of Systems Review Of Systems: See Below Constitutional: Reports: Chills, Weakness. Denies: Fever HEENT: Reports: Sinus Problem Respiratory: Reports: Shortness of Breath, Pleuritic Chest Pain, Cough, Sputum Cardiovascular: Reports: Chest Pain, Lightheadedness. Denies: Palpitations GI/Abdominal: Denies: Abdominal Pain, Constipation, Diarrhea, Nausea, Vomiting : Reports: No Symptoms Musculoskeletal: Reports: No Symptoms Skin: Reports: No Symptoms ED EXAM, GENERAL - Physical Exam Exam: See Below Exam Limited By: No Limitations General Appearance: Alert, WD/WN, No Apparent Distress Ears: Normal External Exam, Normal Canal, Hearing Grossly Normal, Normal TMs Nose: Normal Inspection, No Blood, Nasal Drainage, Other (frontal sinus tenderness) Throat/Mouth: Normal Inspection, Normal Lips, Normal Teeth, Normal Gums, Normal Oropharynx, Normal Voice, No Airway Compromise Head: Atraumatic, Normocephalic, Sinus Tenderness Neck: Normal Inspection, Supple Respiratory/Chest: No Respiratory Distress, Lungs Clear, No Accessory Muscle Use , Decreased Breath Sounds. No: Crackles, Rales, Rhonchi, Wheezing, Accessory Muscle Use Cardiovascular: Normal Peripheral Pulses, Regular Rate, Rhythm, No Murmur GI/Abdominal: Normal Bowel Sounds, Soft, No Distention Extremities: Normal Inspection, No Pedal Edema Neurological: Alert, Oriented, No Motor/Sensory Deficits Psychiatric: Normal Affect, Normal Mood Skin Exam: Warm, Dry, Intact, Normal Color, No Rash Course - Vital Signs Last Recorded V/S: Last Vital Signs Temp 98.2 F 11/27/19 15:07 Pulse 81 11/27/19 15:07 Resp 16 11/27/19 15:37 BP 162/88 H 11/27/19 15:07 Pulse Ox 99 11/27/19 15:37 - Orders/Labs/Meds Orders: Active Orders 24 hr Category Date Time Status Oxygen Therapy, ED [RC] ASDIRECTED Care 11/27/19 15:25 Active CXR [Chest 2V] [CR] Stat Exams 11/27/19 15:05 Ordered COMPREHENSIVE METABOLIC PN,CMP [CHEM] Stat Lab 11/27/19 15:32 Received CREATINE KINASE,CK [CHEM] Stat Lab 11/27/19 15:32 Received LACTATE DEHYDROGENASE,LDH [CHEM] Stat Lab 11/27/19 15:32 Received LIPASE [CHEM] Stat Lab 11/27/19 15:32 Received TROPONIN I [CHEM] Stat Lab 11/27/19 15:32 Received EKG 12 Lead [EK] Routine Ther 11/27/19 15:04 Ordered Labs: Laboratory Tests 11/27/19 11/27/19 11/27/19 Range/Units 15:32 15:32 15:32 WBC 4.2 L (5.0-10.0) 10^3/uL RBC 3.98 L (4.50-6.00) 10^6/uL Hgb 13.2 L (14.0-18.0) g/dL Hct 36.7 L (40.0-54.0) % MCV 92.2 (82.0-94.0) fL MCH 33.2 H (27.0-32.0) pg MCHC 36.0 (33.0-38.0) g/dL RDW Coeff of Arun 13.0 (11.0-15.0) % Plt Count 161 (150-400) 10^3/uL Neut % (Auto) 78.0 (35-85) % Lymph % (Auto) 16.0 (10-55) % Bell % (Auto) 4.8 (0-16) % Eos % (Auto) 0.7 (0-5) % Baso % (Auto) 0.5 (0-3) % Neut # (Auto) 3.27 (1.80-7.00) 10^3/uL Lymph # (Auto) 0.67 L (1.00-4.80) 10^3/uL Bell # (Auto) 0.20 (0.00-0.80) 10^3/uL Eos # (Auto) 0.03 (0.00-0.45) 10^3/uL Baso # (Auto) 0.02 10^3/uL PT 9.8 (9.7-12.3) SEC INR 0.95 (0.92-1.18) APTT 25.1 (23.2-32.3) SEC Sodium 143 (136-145) mEq/L Potassium 4.2 (3.5-5.0) mEq/L Chloride 104 (98-106) mEq/L Carbon Dioxide 29 (21-32) mmol/L BUN 20 H (7-18) mg/dL Creatinine 1.2 (0.7-1.3) mg/dL Est Cr Clr Drug Dosing 58.39 mL/min Estimated GFR (MDRD) 59 L (>=60) mL/min Glucose 107 H (75-99) mg/dL Calcium 8.9 (8.4-10.1) mg/dL Total Bilirubin 1.0 (0.0-1.0) mg/dL Alkaline Phosphatase 62 (46-116) U/L Lactate Dehydrogenase 181 (100-190) U/L Creatine Kinase 50 (35-232) U/L Troponin I < 0.017 (0.00-0.06) ng/mL Total Protein 7.6 (6.4-8.2) g/dL Albumin 4.6 (3.4-5.0) g/dL Lipase 133 (73-393) U/L Departure - Departure Time of Disposition: 16:56 Disposition: Home, Self-Care 01 Clinical Impression: URI (upper respiratory infection) Qualifiers: URI type: unspecified URI Qualified Code(s): J06.9 - Acute upper respiratory infection, unspecified Sinusitis, acute Qualifiers: Sinusitis location: frontal Recurrence: recurrent Qualified Code(s): J01.11 - Acute recurrent frontal sinusitis - Discharge Information Instructions: Sinusitis, Adult, [id number], Upper Respiratory Infection, Adult Additional Instructions: 1) Ceftin 500mg twice a day for 7 days for sinuses 2) Prednisone 20mg - 2 tablets daily for 5 days 3) Continue with home O2 4) Rest 5) If symptoms worsen or any concerns, advise reevaluation 6) Follow up with PCP end of the week Sepsis Event Note - Evaluation Sepsis Screening Result: No Definite Risk - Focused Exam Vital Signs: Vital Signs Temp Pulse Resp BP Pulse Ox 11/27/19 15:37 16 99 11/27/19 15:07 98.2 F 81 16 162/88 H 97 Date Exam was Performed: 11/27/19 Time Exam was Performed: 16:48 - Problem List & Annotations (1) URI (upper respiratory infection) SNOMED Code(s): 61922899 Code(s): J06.9 - ACUTE UPPER RESPIRATORY INFECTION, UNSPECIFIED Status: Acute Current Visit: Yes Qualifiers: URI type: unspecified URI Qualified Code(s): J06.9 - Acute upper respiratory infection, unspecified (2) Sinusitis, acute SNOMED Code(s): 08575961 Code(s): J01.90 - ACUTE SINUSITIS, UNSPECIFIED Status: Acute Current Visit: Yes Qualifiers: Sinusitis location: frontal Recurrence: recurrent Qualified Code(s): J01.11 - Acute recurrent frontal sinusitis - My Orders Last 24 Hours: My Active Orders 11/27/19 15:04 EKG 12 Lead [EK] Routine 11/27/19 15:05 CXR [Chest 2V] [CR] Stat 11/27/19 15:25 Oxygen Therapy, ED [RC] ASDIRECTED 11/27/19 15:32 COMPREHENSIVE METABOLIC PN,CMP [CHEM] Stat CREATINE KINASE,CK [CHEM] Stat LACTATE DEHYDROGENASE,LDH [CHEM] Stat LIPASE [CHEM] Stat TROPONIN I [CHEM] Stat - Assessment/Plan Last 24 Hours: My Active Orders 11/27/19 15:04 EKG 12 Lead [EK] Routine 11/27/19 15:05 CXR [Chest 2V] [CR] Stat 11/27/19 15:25 Oxygen Therapy, ED [RC] ASDIRECTED 11/27/19 15:32 COMPREHENSIVE METABOLIC PN,CMP [CHEM] Stat CREATINE KINASE,CK [CHEM] Stat LACTATE DEHYDROGENASE,LDH [CHEM] Stat LIPASE [CHEM] Stat TROPONIN I [CHEM] Stat Plan: Cardiac work up was negative. Patient stable and in satisfactory condition during time in ED. Will treat as detailed in additional instructions. Recommend following up with PCP next week. Advise to return to ED if symptoms worsen.
== END 2019-11-27 17:05 | disposition home or self-care (01) ==
LOC: CC.ED 14:58
DX: J06.9 Acute upper respiratory infection, unspecified (principal); J01.11 Acute recurrent frontal sinusitis; I10 Essential (primary) hypertension; Z88.0 Allergy status to penicillin; Z88.8 Allergy status to other drugs, medicaments and biological substances; Z79.899 Other long term (current) drug therapy; Z79.82 Long term (current) use of aspirin; Z87.891 Personal history of nicotine dependence
CPT/HCPCS: 36415; 71046; 80053; 82550; 83615; 83690; 84484; 85025; 85610; 85730; 87804; 93005; 93010; 99283; 99285-25

== ENCOUNTER 2020-09-15 11:59 | Observation (INO) | payer MEDICARE, OTHER ==
[2020-09-15] MEDS ORDERED: Aspirin 81 MG Tab.Chew PO ONE (14:09)
[2020-09-15] MEDS ORDERED: Nitroglycerin 0.4 MG Tab.SL SL PRN ×2 (14:09→14:37)
[2020-09-15] MEDS ORDERED: ALPRAZOLAM 0.5 MG PO PRN (14:37)
[2020-09-15] MEDS ORDERED: Acetaminophen 325 MG Tab PO PRN (14:37)
[2020-09-15] MEDS ORDERED: Sodium Chloride 0.9% 10 ML Syringe FLUSH PRN (14:37)
[2020-09-15] MEDS ORDERED: Non-Formulary Medication 1 Each (Budesonide/Formoterol 2 PUFF) INH SCH (14:37)
[2020-09-15] MEDS ORDERED: LEVALBUTEROL PO PRN (16:12)
--- NOTE | 2020-09-15 16:50 | EDM.PDOC ---
ED HPI GENERAL MEDICAL PROBLEM - General Chief Complaint: Chest Pain Stated Complaint: COUGH/WEAKNESS/[facility] IN [facility] REQUESTED HE GET CHECKED Time Seen by Provider: 09/15/20 12:20 Source of Information: Reports: Patient History Limitations: Reports: No Limitations - History of Present Illness INITIAL COMMENTS - FREE TEXT/NARRATIVE: Yasir is a 75 yo male who presents to the ED with concerns of chest pain. States it is midsternal and does radiate to the right side of his chest. Admits to having a cough as well. Symptoms have been present for a few weeks but chest discomfort did get worse today. Is [facility] and advised he come to ED to be evaluated. Has history of shortness of breath with chronic oxygen use per nasal canula at home. States the pain is present whether he is ambulatory or at rest. With deep inspiration it will make the pain worse as well. Chest Pain Score (Numeric/FACES): 3 - Related Data Allergies Allergy/AdvReac Type Severity Reaction Status Date / Time Penicillins Allergy Severe Swollen Verified 09/15/20 12:37 Tongue simvastatin [From Zocor] Allergy Mild Itching Verified 09/15/20 12:37 roflumilast [From Daliresp] AdvReac Abdominal Verified 09/15/20 12:37 Pain Home Meds: Home Meds Aspirin [Halfprin] 81 mg PO DAILY 12/24/15 [History] Levothyroxine 125 mcg PO ACBREAKFAST 12/24/15 [History] Nitroglycerin [Nitrostat] 0.4 mg SL Q5M PRN 12/24/15 [History] Omeprazole [Prilosec] 20 mg PO DAILY 12/24/15 [History] Pramipexole Di-HCl [Pramipexole Dihydrochloride] 0.5 mg PO BEDTIME 12/24/15 [History] Sertraline HCl 150 mg PO DAILY 12/24/15 [History] ALPRAZolam [Xanax] 0.5 mg PO Q6H PRN 01/27/16 [History] Tiotropium Cyclone [Spiriva Respimat] 2 puff INH DAILY 01/25/17 [History] Carbidopa/Levodopa [Carbidopa-Levodopa 25-100] 1 each PO TID 03/21/18 [History] Budesonide/Formoterol [Symbicort 160-4.5 MCG] 2 puff INH Q12HR 05/04/19 [History] Budesonide [Pulmicort] 0.5 mg IH BID 06/19/19 [History] predniSONE 1 tab PO DAILY 09/15/20 [History] Past Medical History HEENT History: Reports: Impaired Vision Cardiovascular History: Reports: High Cholesterol, Hypertension Respiratory History: Reports: Asthma, COPD, SOB Other Respiratory History: [facility] history: implantable loop monitor--patient said because he "passed out", reflux, hypothyroid, COPD, hyperlipidemia, hypertension in [facility] chart, restless leg. Gastrointestinal History: Reports: GERD Musculoskeletal History: Reports: Arthritis Neurological History: Reports: Concussion Psychiatric History: Reports: Anxiety, Depression Endocrine/Metabolic History: Reports: Hypothyroidism - Infectious Disease History Infectious Disease History: Reports: Shingles - Past Surgical History HEENT Surgical History: Reports: Cataract Surgery Cardiovascular Surgical History: Reports: Other (See Below) Other Cardiovascular Surgeries/Procedures: angiogram Respiratory Surgical History: Reports: None GI Surgical History: Reports: None Neurological Surgical History: Reports: None Musculoskeletal Surgical History: Reports: None Social & Family History - Family History Family Medical History: Noncontributory - Tobacco Use Tobacco Use Status *Q: Former Tobacco User Used Tobacco, but Quit: Yes Month/Year Tobacco Last Used: 1999 Second Hand Smoke Exposure: No - Caffeine Use Caffeine Use: Reports: Coffee - Recreational Drug Use Recreational Drug Use: No ED ROS GENERAL - Review of Systems Review Of Systems: See Below Constitutional: Reports: Fatigue. Denies: Fever, Chills HEENT: Reports: No Symptoms Respiratory: Reports: Shortness of Breath, Cough. Denies: Wheezing, Hemoptysis Cardiovascular: Reports: Chest Pain, Lightheadedness. Denies: Edema, Palpitations, Syncope Endocrine: Reports: No Symptoms GI/Abdominal: Reports: No Symptoms : Reports: No Symptoms Musculoskeletal: Reports: No Symptoms Skin: Reports: No Symptoms Neurological: Reports: Dizziness Psychiatric: Reports: No Symptoms ED EXAM, GENERAL - Physical Exam Exam: See Below Exam Limited By: No Limitations General Appearance: Alert, No Apparent Distress Ears: Normal External Exam, Normal Canal, Hearing Grossly Normal, Normal TMs Nose: Normal Inspection, Normal Mucosa, No Blood Throat/Mouth: Normal Inspection, Normal Lips, Normal Gums, Normal Oropharynx, Normal Voice, No Airway Compromise Head: Atraumatic, Normocephalic Neck: Normal Inspection, Supple Respiratory/Chest: No Respiratory Distress, Lungs Clear, Normal Breath Sounds, Other (tenderness to chest wall with palpation right side) Cardiovascular: Regular Rate, Rhythm, No Edema, No Murmur GI/Abdominal: Normal Bowel Sounds, Soft, Non-Tender Extremities: Normal Inspection, No Pedal Edema Neurological: Alert, Oriented, Normal Cognition, No Motor/Sensory Deficits Psychiatric: Normal Affect, Normal Mood Skin Exam: Warm, Dry, Intact, Normal Color, No Rash #1 Interpretation EKG Date: 09/15/20 Rhythm: NSR Course - Vital Signs Last Recorded V/S: Last Vital Signs Temp 98.2 F 09/15/20 14:37 Pulse 66 09/15/20 14:37 Resp 18 09/15/20 14:37 BP 175/78 H 09/15/20 14:37 Pulse Ox 98 09/15/20 14:37 - Orders/Labs/Meds Orders: Active Orders 24 hr Category Date Time Status Chest 2V [CR] Routine Exams 09/15/20 Taken Medication Orders Acetaminophen (Tylenol) 650 mg PO Q4H PRN PRN Reason: Pain (Mild 1-3)/fever Aspirin (Halfprin) 81 mg PO DAILY [facility] Budesonide (Pulmicort) 0.5 mg INH BID [facility] Carbidopa/Levodopa (Sinemet 25-100 Mg) 1 tab PO TID [facility] Enoxaparin Sodium (Lovenox) 40 mg SUBCUT Q24H [facility] Levothyroxine Sodium (Levothyroxine) 125 mcg PO ACBREAKFAST [facility] Nitroglycerin (Nitrostat) 0.4 mg SL Q5M PRN PRN Reason: Chest Pain Last Admin: 09/15/20 14:10 Dose: 0.4 mg Documented by: TYSON Nitroglycerin (Nitrostat) 0.4 mg SL Q5M PRN PRN Reason: Chest Pain Alprazolam [Xanax] 0 (.5 Mg Ptom) 0 mg PO TID PRN PRN Reason: Anxiety Omeprazole [Prilosec (] 20 Mg Ptom) 0 mg PO DAILY@0730 [facility] Tiotropium Cyclone [ Spiriva Respimat] Ptom 0 puff INH DAILY [facility] Sertraline 100mg Tab (Ptom) 0 each PO DAILY [facility] Prednisone 20 Mg Tab (Ptom) 0 each PO DAILY [facility] Cyanocobalamin (1000mcg Tab Ptom) 0 each PO DAILY [facility] Levalbuterol ( Xopenex) Hfa 45mcg/Inh Ptom 0 each PO ASDIRECTED PRN PRN Reason: Shortness of Breath Pramipexole Dihydrochloride (Mirapex) 0.5 mg PO BEDTIME [facility] Sodium Chloride (Saline Flush) 10 ml FLUSH ASDIRECTED PRN PRN Reason: Keep Vein Open Labs: Laboratory Tests 09/15/20 09/15/20 09/15/20 Range/Units 12:27 12:27 12:27 WBC 5.6 (5.0-10.0) 10^3/uL RBC 3.91 L (4.50-6.00) 10^6/uL Hgb 12.7 L (14.0-18.0) g/dL Hct 36.2 L (40.0-54.0) % MCV 92.6 (82.0-94.0) fL MCH 32.5 H (27.0-32.0) pg MCHC 35.1 (33.0-38.0) g/dL RDW Coeff of Arun 12.7 (11.0-15.0) % Plt Count 144 L (150-400) 10^3/uL Neut % (Auto) 92.4 H (35-85) % Lymph % (Auto) 5.8 L (10-55) % [place] % (Auto) 1.6 (0-16) % Eos % (Auto) 0.2 (0-5) % Baso % (Auto) 0 (0-3) % Neut # (Auto) 5.13 (1.80-7.00) 10^3/uL Lymph # (Auto) 0.32 L (1.00-4.80) 10^3/uL [place] # (Auto) 0.09 (0.00-0.80) 10^3/uL Eos # (Auto) 0.01 (0.00-0.45) 10^3/uL Baso # (Auto) 0.00 10^3/uL Sodium 140 (136-145) mEq/L Potassium 4.0 (3.5-5.0) mEq/L Chloride 100 (98-106) mEq/L Carbon Dioxide 29 (21-32) mmol/L BUN 19 H (7-18) mg/dL Creatinine 1.2 (0.7-1.3) mg/dL Est Cr Clr Drug Dosing 55.44 mL/min Estimated GFR (MDRD) 59 L (>=60) mL/min Glucose 128 H (75-99) mg/dL Calcium 9.2 (8.4-10.1) mg/dL Total Bilirubin 0.8 (0.0-1.0) mg/dL AST 24 (15-37) U/L ALT 16 (12-78) U/L Alkaline Phosphatase 68 (46-116) U/L Lactate Dehydrogenase 217 H (100-190) U/L Creatine Kinase 361 H (35-232) U/L Troponin I 0.126 H (0.00-0.06) ng/mL Total Protein 7.9 (6.4-8.2) g/dL Albumin 4.5 (3.4-5.0) g/dL Lipase 114 (73-393) U/L SARS CoV-2 RNA Rapid EMIGDIO Negative (NEGATIVE) Meds: Medications Generic Name Dose Route Start Last Admin Trade Name Freq PRN Reason Stop Dose Admin Acetaminophen 650 mg 09/15/20 14:37 Tylenol PO Q4H PRN Pain (Mild 1-3)/fever Aspirin 81 mg 09/16/20 08:00 Halfprin PO DAILY [facility] Budesonide 0.5 mg 09/15/20 20:00 Pulmicort INH BID [facility] Carbidopa/Levodopa 1 tab 09/15/20 20:00 Sinemet 25-100 Mg PO TID [facility] Enoxaparin Sodium 40 mg 09/15/20 20:00 Lovenox SUBCUT Q24H [facility] Levothyroxine Sodium 125 mcg 09/16/20 07:00 Levothyroxine PO ACBREAKFAST [facility] Nitroglycerin 0.4 mg 09/15/20 14:09 09/15/20 14:10 Nitrostat SL 0.4 mg Q5M PRN Administration Chest Pain Nitroglycerin 0.4 mg 09/15/20 14:37 Nitrostat SL Q5M PRN Chest Pain Alprazolam [Xanax] 0 0 mg 09/15/20 14:37 .5 Mg Ptom PO TID PRN Anxiety Omeprazole [Prilosec 0 mg 09/16/20 07:30 ] 20 Mg Ptom PO DAILY@0730 [facility] Tiotropium Cyclone [ 0 puff 09/16/20 08:00 Spiriva Respimat] INH Ptom DAILY [facility] Sertraline 100mg Tab 0 each 09/16/20 08:00 Ptom PO DAILY [facility] Prednisone 20 Mg Tab 0 each 09/16/20 08:00 Ptom PO DAILY [facility] Cyanocobalamin 0 each 09/16/20 08:00 1000mcg Tab Ptom PO DAILY [facility] Levalbuterol ( 0 each 09/15/20 16:12 Xopenex) Hfa 45mcg/ PO Inh Ptom ASDIRECTED PRN Shortness of Breath Pramipexole Dihydrochloride 0.5 mg 09/15/20 20:00 Mirapex PO BEDTIME [facility] Sodium Chloride 10 ml 09/15/20 14:37 Saline Flush FLUSH ASDIRECTED PRN Keep Vein Open Discontinued Medications Generic Name Dose Route Start Last Admin Trade Name Freq PRN Reason Stop Dose Admin Aspirin 324 mg 09/15/20 14:09 09/15/20 14:10 Aspirin PO 09/15/20 14:10 324 mg ONETIME ONE Administration Non-Formulary Medication 2 puff 09/15/20 14:37 Budesonide/Formoterol INH Q12HR [facility] Departure - Departure Time of Disposition: 14:15 Disposition: Refer to Observation Clinical Impression: Atypical chest pain Sepsis Event Note (ED) - Evaluation Sepsis Screening Result: No Definite Risk - Focused Exam Vital Signs: Vital Signs Temp Pulse Resp BP Pulse Ox 09/15/20 12:41 97.7 F 75 20 191/90 H 98 09/15/20 12:40 97.7 F 74 20 151/71 H 98 - Problem List & Annotations (1) Atypical chest pain SNOMED Code(s): 703502704 Code(s): R07.89 - OTHER CHEST PAIN Status: Acute Current Visit: Yes - My Orders Last 24 Hours: My Active Orders 09/15/20 Chest 2V [CR] Routine - Assessment/Plan Admission H&P: Please use this note as an admission H&P Last 24 Hours: My Active Orders 09/15/20 Chest 2V [CR] Routine Plan: Cardiac work up indeterminate. Will admit for observation for cardiac rule out. Repeat troponin at 1600hrs was indeterminate. Will repeat again tonight at 2000hrs. Chaya Sanchez consulted in regards to Yasir's condition and aware of admit. Will closely watch with telemetry. Patient's discomfort has subsided on admission to hospital. Currently asymptomatic.
[2020-09-15] MEDS: Budesonide 0.5 MG/2 ML Neb Susp **PTOM INH SCH (19:39)
[2020-09-15] MEDS: Carbidopa/Levodopa 25-100 MG Tab **PTOM PO SCH (19:40)
[2020-09-15] MEDS ORDERED: Enoxaparin 40 MG/0.4 ML Syringe SUBCUT SCH (20:00)
[2020-09-15] MEDS ORDERED: PRAMIPEXOLE 0.5 MG PO SCH (20:00)
[2020-09-16] MEDS ORDERED: LEVOTHYROXINE 125 MCG PO SCH (07:00)
[2020-09-16] MEDS ORDERED: OMEPRAZOLE 20 MG PO SCH (07:30)
[2020-09-16] MEDS ORDERED: TIOTROPIUM BROMIDE INH SCH (08:00)
[2020-09-16] MEDS ORDERED: SERTRALINE 100 MG PO SCH (08:00)
[2020-09-16] MEDS ORDERED: Aspirin 81 MG Tab.EC PO SCH (08:00)
[2020-09-16] MEDS ORDERED: PREDNISONE 20 MG PO SCH (08:00)
[2020-09-16] MEDS ORDERED: CYANOCOBALAMIN 1000 MCG PO SCH (08:00)
[2020-09-16] MEDS: Carbidopa/Levodopa 25-100 MG Tab **PTOM PO SCH (08:31)
[2020-09-16] MEDS: Budesonide 0.5 MG/2 ML Neb Susp **PTOM INH SCH (08:32)
[2020-09-16] MEDS ORDERED: Iopamidol 755 Mg/ML 100 ML Bottle IVPUSH ONE (11:14)
[2020-09-16 11:54] VITALS: BP 165/77; PULSE 58
--- NOTE | 2020-09-16 13:07 | PCM.DCSUM1 ---
Discharge Summary - Hospital Course Brief History: Yasir is a 75 yo male who was admitted to the hospital yesterday for cardiac rule out. Has been having midsternal to right sided chest pains for over the last few weeks. Had admitted he has had it on multiple occasions in the past. Had been in touch with primary provider at the [facility], Dr. Shobha Middleton and advised Yasir to be evaluated in the ED. Laboratory workup initially did show an indeterminate troponin and elected to keep observation for cardiac rule out. Diagnosis: Stroke: No - Discharge Data Discharge Date: 09/16/20 Discharge Disposition: Home, Self-Care 01 Condition: Stable - Referral to Home Health Primary Care Physician: Lorraine Middleton MD - Discharge Diagnosis/Problem(s) (1) Atypical chest pain SNOMED Code(s): 314369215 ICD Code: R07.89 - OTHER CHEST PAIN Status: Acute Current Visit: Yes - Patient Summary/Data Hospital Course: Yasir had an uneventful hospital stay. Repeat cardiac enzymes were indeterminate yesterday with minimal to no increase from initial tests. This morning troponin did decrease. EKG showed no concerning findings. Overall, patient is asymptomatic this morning. CTA of the chest completed as d-dimer was slightly elevated and negative for PE or any acute findings. COVID negative test yesterday. - Patient Instructions Diet: Usual Diet as Tolerated Activity: As Tolerated - Discharge Plan Home Medications: Home Meds Aspirin [Halfprin] 81 mg PO DAILY 12/24/15 [History] Levothyroxine 125 mcg PO ACBREAKFAST 12/24/15 [History] Nitroglycerin [Nitrostat] 0.4 mg SL Q5M PRN 12/24/15 [History] Omeprazole [Prilosec] 20 mg PO DAILY 12/24/15 [History] Pramipexole Di-HCl [Pramipexole Dihydrochloride] 0.5 mg PO BEDTIME 12/24/15 [History] Sertraline HCl 150 mg PO DAILY 12/24/15 [History] ALPRAZolam [Xanax] 0.5 mg PO Q6H PRN 01/27/16 [History] Tiotropium [place] [Spiriva Respimat] 2 puff INH DAILY 01/25/17 [History] Carbidopa/Levodopa [Carbidopa-Levodopa 25-100] 1 each PO TID 03/21/18 [History] Budesonide/Formoterol [Symbicort 160-4.5 MCG] 2 puff INH Q12HR 05/04/19 [History] Budesonide [Pulmicort] 0.5 mg IH BID 06/19/19 [History] predniSONE 1 tab PO DAILY 09/15/20 [History] Oxygen Therapy Mode: Nasal Cannula Forms: ED Department Discharge Referrals: Lorraine Middleton MD [Primary Care Provider] - (Follow up with primary in 1 week.) - Discharge Summary/Plan Comment DC Time >30 min.: Yes Discharge Summary/Plan Comment: Will discharge home at this time. Patient currently has no symptoms and is comfortable with discharge at this time. Will have him follow up with primary provider for recheck in the next week. Patient in agreement. - General Info Date of Service: 09/16/20 Functional Status: Reports: Pain Controlled, Tolerating Diet - Review of Systems General: Reports: No Symptoms HEENT: Reports: No Symptoms Pulmonary: Reports: No Symptoms Cardiovascular: Denies: Chest Pain Gastrointestinal: Reports: No Symptoms Genitourinary: Reports: No Symptoms Neurological: Reports: No Symptoms - Patient Data Vitals - Most Recent: Last Vital Signs Temp 98.2 F 09/16/20 11:53 Pulse 58 L 09/16/20 11:53 Resp 16 09/16/20 11:53 BP 165/77 H 09/16/20 11:53 Pulse Ox 98 09/16/20 11:53 Weight - Most Recent: 160 lb Lab Results - Last 24 hrs: Laboratory Results - last 24 hr 09/15/20 09/15/20 09/16/20 Range/Units 16:00 20:00 05:11 D-Dimer, Quantitative (0.00-0.50) Creatine Kinase 24 L (35-232) U/L Troponin I 0.191 H 0.219 H 0.085 H (0.00-0.06) ng/mL 09/16/20 Range/Units 09:34 D-Dimer, Quantitative 1.37 H (0.00-0.50) Creatine Kinase (35-232) U/L Troponin I (0.00-0.06) ng/mL Med Orders - Current: Current Medications Acetaminophen (Tylenol) 650 mg PO Q4H PRN PRN Reason: Pain (Mild 1-3)/fever Aspirin (Halfprin) 81 mg PO DAILY [facility] Last Admin: 09/16/20 08:34 Dose: 81 mg Documented by: Budesonide (Pulmicort) 0.5 mg INH BID [facility] Last Admin: 09/16/20 08:32 Dose: 0.5 mg Documented by: Carbidopa/Levodopa (Sinemet 25-100 Mg) 1 tab PO TID [facility] Last Admin: 09/16/20 08:31 Dose: 1 tab Documented by: Enoxaparin Sodium (Lovenox) 40 mg SUBCUT Q24H [facility] Last Admin: 09/15/20 19:37 Dose: 40 mg Documented by: Levothyroxine Sodium (Levothyroxine) 125 mcg PO ACBREAKFAST [facility] Last Admin: 09/16/20 08:28 Dose: 125 mcg Documented by: Nitroglycerin (Nitrostat) 0.4 mg SL Q5M PRN PRN Reason: Chest Pain Last Admin: 09/15/20 14:10 Dose: 0.4 mg Documented by: Nitroglycerin (Nitrostat) 0.4 mg SL Q5M PRN PRN Reason: Chest Pain Alprazolam [Xanax] 0 (.5 Mg Ptom) 0 mg PO TID PRN PRN Reason: Anxiety Last Admin: 09/15/20 19:45 Dose: 0.5 mg Documented by: Omeprazole [Prilosec (] 20 Mg Ptom) 0 mg PO DAILY@0730 [facility] Last Admin: 09/16/20 08:29 Dose: 20 mg Documented by: Tiotropium [place] [ Spiriva Respimat] Ptom 0 puff INH DAILY [facility] Last Admin: 09/16/20 08:32 Dose: 2 puff Documented by: Sertraline 100mg Tab (Ptom) 0 each PO DAILY [facility] Last Admin: 09/16/20 08:31 Dose: 1 each Documented by: Cyanocobalamin (1000mcg Tab Ptom) 0 each PO DAILY [facility] Last Admin: 09/16/20 08:29 Dose: 1 each Documented by: Levalbuterol ( Xopenex) Hfa 45mcg/Inh Ptom 0 each PO ASDIRECTED PRN PRN Reason: Shortness of Breath Pramipexole Dihydrochloride (Mirapex) 0.5 mg PO BEDTIME [facility] Last Admin: 09/15/20 19:38 Dose: 0.5 mg Documented by: Prednisone (Prednisone) 40 mg PO DAILY [facility] Last Admin: 09/16/20 08:41 Dose: 40 mg Documented by: Sodium Chloride (Saline Flush) 10 ml FLUSH ASDIRECTED PRN PRN Reason: Keep Vein Open Discontinued Medications Aspirin (Aspirin) 324 mg PO ONETIME ONE Stop: 09/15/20 14:10 Last Admin: 09/15/20 14:10 Dose: 324 mg Documented by: Iopamidol (Isovue-370 (76%)) 100 ml IVPUSH ONETIME ONE Stop: 09/16/20 11:15 Last Admin: 09/16/20 11:25 Dose: 100 ml Documented by: Non-Formulary Medication (Budesonide/Formoterol) 2 puff INH Q12HR [facility] Prednisone 20 Mg Tab (Ptom) 0 each PO DAILY [facility] Last Admin: 09/16/20 09:52 Dose: Not Given Documented by: - Exam General: Reports: Alert, Oriented Lungs: Reports: Clear to Auscultation, Normal Respiratory Effort, Decreased Breath Sounds, Other (on chronic O2) Cardiovascular: Reports: Regular Rhythm, Bradycardia GI/Abdominal Exam: Normal Bowel Sounds, Soft, Non-Tender, No Distention Skin: Reports: Warm, Dry, Intact Psy/Mental Status: Reports: Alert, Normal Affect, Normal Mood #2 Interpretation EKG Date: 09/16/20 Time: 08:00 Rhythm: Other (Sinus bradycardia) P-Wave: Present QRS: Normal ST-T: Normal Comparison: No Change
== END 2020-09-16 13:01 | disposition home or self-care (01) ==
LOC: CC.ED 11:59 → CC.MS 13:35 → UNDOADMOB 13:35 → CC.MS 14:00
PROVIDERS: ADMIT Physician Assistant Medical; ATTEND Family Medicine
DX: R07.89 Other chest pain (principal); E78.00 Pure hypercholesterolemia, unspecified; I10 Essential (primary) hypertension; J44.9 Chronic obstructive pulmonary disease, unspecified; F32.9 Major depressive disorder, single episode, unspecified; F41.9 Anxiety disorder, unspecified; E03.9 Hypothyroidism, unspecified; K21.9 Gastro-esophageal reflux disease without esophagitis; Z20.828 Contact with and (suspected) exposure to other viral communicable diseases; Z79.899 Other long term (current) drug therapy; Z79.82 Long term (current) use of aspirin; Z88.0 Allergy status to penicillin; Z88.8 Allergy status to other drugs, medicaments and biological substances; Z87.891 Personal history of nicotine dependence
CPT/HCPCS: 36415; 71046; 71275; 80053; 82550; 83615; 83690; 84484; 85025; 85379; 93005; 94640; 96372; 99285; A9270; G0378; J1650; J7512; Q9967; U0002; 99217; 99220

== ENCOUNTER → 2020-12-19 | Day surgery (SDC) | payer MEDICARE, OTHER ==
[~2020-12-19] MED LIST: Ketamine 200 MG/20 ML MDV ONE; Lactated Ringers 1,000 ML IV SCH; Propofol 200 MG/20 ML SDV ONE
[2020-12-19 12:27] VITALS: BP 174/66; PULSE 56
--- NOTE | 2020-12-19 13:20 | OR ---
DATE OF OPERATION: 12/19/2020 PREOPERATIVE DIAGNOSIS: ANEMIA. POSTOPERATIVE DIAGNOSIS: ANEMIA. SURGEON: Bonifacio Fry MD PROCEDURE: DIAGNOSTIC COLONOSCOPY WITH SNARE POLYPECTOMY X2. ANESTHESIA: MAC. COMPLICATIONS: None. SPECIMEN: Tubular adenomas x2. FINDINGS: 1. Full-length colonoscopy. 2. Moderate sigmoid diverticulosis. 3. Tubular adenomas x2, each approximately 5 mm. RECOMMENDATIONS: Followup colonoscopy in 5 years. INDICATIONS: The patient was sent from the [facility] for a low-grade anemia. He was not microcytic. I am unsure if he had heme-positive stool, but it was requested by his [facility] provider. DESCRIPTION OF PROCEDURE: The patient was prepped and draped, placed in the left lateral decubitus position. A lubricated Olympus colonoscope was inserted and with ease advanced to the cecum. Direct visualization of the ileocecal valve and appendiceal orifice was accomplished. The bowel prep was adequate. There was a lot of stool in the colon, most of it could be suctioned. There were some solid areas, and so, smaller lesions in those areas certainly could have been missed. Upon withdrawal, the cecal pouch appeared benign. Just outside the pouch in the most immediate ascending colon, the patient had a small tubular adenoma, snared and suctioned into polyp trap #1 without any problem, it was approximately 0.5 cm in size. The rest of the ascending colon was benign. In the mid transverse colon, the patient had a second tubular adenoma, also snared and suctioned into polyp trap #2 without any difficulty, approximately 5 mm as well. The rest of the transverse and descending colons were benign. Throughout the sigmoid and into the rectosigmoid area, the patient had moderate diverticular disease without inflammatory change. There were no other polyps, masses, ulceration, or bleeding sites. No vascular abnormalities or signs of colitis. No active bleeding sites seen. The rectal vault appeared benign. Quite a bit of stool was present in the vault. I was able to retroflex and get a relatively good look at the perianal region which was benign. Air was then suctioned and the scope removed without complication. KASHIF/KORI /[id number]
== END ==
LOC: CC.SDS 10:30
PROVIDERS: ATTEND Family Medicine
DX: D12.0 Benign neoplasm of cecum (principal); D12.3 Benign neoplasm of transverse colon; D64.9 Anemia, unspecified; K57.30 Diverticulosis of large intestine without perforation or abscess without bleeding; N40.0 Benign prostatic hyperplasia without lower urinary tract symptoms; J44.9 Chronic obstructive pulmonary disease, unspecified; K21.9 Gastro-esophageal reflux disease without esophagitis; E78.5 Hyperlipidemia, unspecified; I10 Essential (primary) hypertension; E03.9 Hypothyroidism, unspecified; I25.10 Atherosclerotic heart disease of native coronary artery without angina pectoris; Z01.812 Encounter for preprocedural laboratory examination; Z20.822 Contact with and (suspected) exposure to COVID-19; G25.81 Restless legs syndrome; Z88.0 Allergy status to penicillin; Z88.8 Allergy status to other drugs, medicaments and biological substances; Z79.899 Other long term (current) drug therapy; Z79.890 Hormone replacement therapy; Z87.891 Personal history of nicotine dependence
CPT/HCPCS: 00812; 45385; 88305; J2704; J7120

== ENCOUNTER 2021-07-22 16:45 | Emergency (ER) | payer MEDICARE, OTHER ==
--- NOTE | 2021-07-22 17:28 | EDM.PDOC ---
ED HPI GENERAL MEDICAL PROBLEM - General Chief Complaint: Chest Pain Stated Complaint: HAVING CHEST PAINS Time Seen by Provider: 07/22/21 17:00 Source of Information: Reports: Patient, Family (), RN History Limitations: Reports: No Limitations - History of Present Illness INITIAL COMMENTS - FREE TEXT/NARRATIVE: States that he has been having right sided chest pain for all day. He denies any injuries. He did throw some iron into trailer last night but doesn't feel like he hurt himself. He helped lift a door this afternoon and it became worse now. No SOB with it. No nausea or diaphoresis. Has not taken anything for it. Onset: Today Location: Reports: Chest Associated Symptoms: Reports: No Other Symptoms Right Lower Chest Pain Score (Numeric/FACES): 8 - Related Data Allergies Allergy/AdvReac Type Severity Reaction Status Date / Time Penicillins Allergy Severe Swollen Verified 12/19/20 10:50 Tongue simvastatin [From Zocor] Allergy Mild Itching Verified 12/19/20 10:50 atorvastatin Allergy Rash Verified 12/19/20 10:50 Home Meds: Home Meds Levothyroxine 125 mcg PO ACBREAKFAST 12/24/15 [History] Nitroglycerin [Nitrostat] 0.4 mg SL Q5M PRN 12/24/15 [History] Pramipexole Di-HCl [Pramipexole Dihydrochloride] 0.5 mg PO BEDTIME 12/24/15 [History] Sertraline HCl 150 mg PO DAILY 12/24/15 [History] ALPRAZolam [Xanax] 0.5 mg PO Q6H PRN 01/27/16 [History] Tiotropium [place] [Spiriva Respimat] 2 puff INH DAILY 01/25/17 [History] Carbidopa/Levodopa [Carbidopa-Levodopa 25-100] 1 each PO BID 03/21/18 [History] Budesonide [Pulmicort] 0.5 mg IH BID 06/19/19 [History] Fluticasone Propionate 2 spray DAYO DAILY 12/17/20 [History] Fluticasone Propionate [Flovent HFA 220 MCG] 2 puff INH BID 12/17/20 [History] Aspirin 1 tab PO DAILY 12/19/20 [History] Pantoprazole [ProTONIX] 40 mg PO DAILY 12/19/20 [History] Clopidogrel Bisulfate [Plavix] 75 mg PO DAILY 07/22/21 [History] Cyanocobalamin (Vitamin B-12) [B-12] 1,000 mcg PO DAILY 07/22/21 [History] Rosuvastatin [Crestor] 20 mg PO BEDTIME 07/22/21 [History] Past Medical History HEENT History: Reports: Impaired Vision Cardiovascular History: Reports: High Cholesterol, Hypertension Respiratory History: Reports: Asthma, COPD, SOB Other Respiratory History: [facility] history: implantable loop monitor--patient said because he "passed out", reflux, hypothyroid, COPD, hyperlipidemia, hypertension in [facility] chart, restless leg. Gastrointestinal History: Reports: GERD Musculoskeletal History: Reports: Arthritis Neurological History: Reports: Concussion Psychiatric History: Reports: Anxiety, Depression Endocrine/Metabolic History: Reports: Hypothyroidism - Infectious Disease History Infectious Disease History: Reports: Shingles - Past Surgical History HEENT Surgical History: Reports: Cataract Surgery Cardiovascular Surgical History: Reports: Other (See Below) Other Cardiovascular Surgeries/Procedures: angiogram Respiratory Surgical History: Reports: None GI Surgical History: Reports: None Neurological Surgical History: Reports: None Musculoskeletal Surgical History: Reports: None Social & Family History - Family History Family Medical History: No Pertinent Family History - Tobacco Use Tobacco Use Status *Q: Former Tobacco User Used Tobacco, but Quit: Yes Month/Year Tobacco Last Used: 2000 - Caffeine Use Caffeine Use: Reports: Coffee ED ROS GENERAL - Review of Systems Review Of Systems: See Below Constitutional: Denies: Fever, Chills, Weakness Respiratory: Denies: Shortness of Breath, Cough Cardiovascular: Reports: Chest Pain (right lateral side.) GI/Abdominal: Reports: No Symptoms : Reports: No Symptoms Skin: Reports: No Symptoms Neurological: Reports: No Symptoms ED EXAM, GENERAL - Physical Exam Exam: See Below Exam Limited By: No Limitations General Appearance: Alert, WD/WN, Mild Distress Head: Atraumatic, Normocephalic Neck: Normal Inspection, Supple, Non-Tender, Full Range of Motion Respiratory/Chest: No Respiratory Distress, Lungs Clear, Normal Breath Sounds, Other (right side of lower chest/ribs are tender to palpation. No bruising or redness noted to the areas. It increases in pain with movement also.) Cardiovascular: Regular Rate, Rhythm, No Edema GI/Abdominal: Normal Bowel Sounds, Soft, Non-Tender, No Organomegaly Back Exam: Normal Inspection Extremities: Normal Inspection, No Pedal Edema, Normal Capillary Refill Neurological: Alert, Oriented Skin Exam: Warm, Dry, Intact Course - Vital Signs Last Recorded V/S: Last Vital Signs Temp 97.9 F 07/22/21 18:37 Pulse 54 L 07/22/21 18:37 Resp 15 07/22/21 18:37 BP 156/71 H 07/22/21 18:37 Pulse Ox 99 07/22/21 18:37 - Orders/Labs/Meds Orders: Active Orders 24 hr Category Date Time Status Oxygen Therapy, ED [RC] ASDIRECTED Care 07/22/21 16:45 Active Vital Signs [RC] Q1H Care 07/22/21 17:46 Active Ang Chest [CT] Stat Exams 07/22/21 17:39 Taken Chest 2V [CR] Routine Exams 07/22/21 Taken Ribs 2V wo Chest Rt [CR] Stat Exams 07/22/21 17:01 Taken Labs: Laboratory Tests 07/22/21 07/22/21 07/22/21 Range/Units 17:06 17:06 17:06 WBC 4.2 (4.0-11.0) 10^3/uL RBC 3.62 L (4.50-6.00) x10^6/uL Hgb 11.9 L (14.0-18.0) g/dL Hct 33.5 L (42.0-52.0) % MCV 92.5 (83.0-97.0) fL MCH 32.9 H (27.0-32.0) pg MCHC 35.5 (32.0-36.0) g/dL RDW Coeff of Arun 13.0 (11.0-15.0) % Plt Count 121 L (150-400) 10^3/uL Immature Gran % (Auto) 0.2 (0.0-4.9) % Neut % (Auto) 77.4 H (41-71) % Lymph % (Auto) 16.1 L (24-44) % Garrett % (Auto) 5.2 (0-10) % Eos % (Auto) 0.9 (0-6) % Baso % (Auto) 0.2 (0-1) % Neut # (Auto) 3.26 (1.80-8.00) x10^3/uL Lymph # (Auto) 0.68 (0.60-5.00) 10^3/uL [place] # (Auto) 0.22 (0.00-1.50) 10^3/uL Eos # (Auto) 0.04 (0.00-1.50) 10^3/uL Baso # (Auto) 0.01 (0.00-0.50) 10^3/uL Immature Gran # (Auto) 0.01 (0.00-0.49) 10^3/uL PT 10.3 (9.7-12.3) SEC INR 0.94 (0.92-1.18) APTT 23.5 (23.2-32.3) SEC D-Dimer, Quantitative 1.22 H (0.00-0.50) Sodium 141 (136-145) mEq/L Potassium 4.1 (3.5-5.0) mEq/L Chloride 103 (98-106) mEq/L Carbon Dioxide 30 (21-32) mmol/L BUN 20 H (7-18) mg/dL Creatinine 1.2 (0.7-1.3) mg/dL Est Cr Clr Drug Dosing 54.60 mL/min Estimated GFR (MDRD) 59 L (>=60) mL/min Glucose 118 H (75-99) mg/dL Calcium 9.3 (8.4-10.1) mg/dL Magnesium 2.2 (1.8-2.4) mg/dL Total Bilirubin 1.0 (0.0-1.0) mg/dL AST 18 (15-37) U/L ALT 17 (12-78) U/L Alkaline Phosphatase 72 (46-116) U/L Lactate Dehydrogenase 185 (100-190) U/L Creatine Kinase 90 (35-232) U/L Troponin I High Sens 7.6 (<=76) pg/mL Total Protein 7.8 (6.4-8.2) g/dL Albumin 4.6 (3.4-5.0) g/dL Lipase 61 L (73-393) U/L Meds: Medications Discontinued Medications Generic Name Dose Route Start Last Admin Trade Name Freq PRN Reason Stop Dose Admin Iopamidol 100 ml 07/22/21 17:47 07/22/21 18:06 Iopamidol 755 Mg/Ml 100 Ml Bottle IVPUSH 07/22/21 17:48 100 ml ONETIME ONE Administration - Re-Assessments/Exams Free Text/Narrative Re-Assessment/Exam: 07/22/21 19:[address] of chest with radiologist and no PE or other acute findings noted. Departure - Departure Time of Disposition: 19:37 Disposition: Home, Self-Care 01 Clinical Impression: Acute chest wall pain Instructions: Chest Wall Pain Forms: ED Department Discharge Additional Instructions: Tylenol or ibuprofen as needed for discomfort Heating pad to the area No lifting or stretching until pain is resolved. follow up with primary care provider for elevated BP Sepsis Event Note (ED) - Evaluation Sepsis Screening Result: No Definite Risk - Focused Exam Vital Signs: Vital Signs Temp Pulse Resp BP Pulse Ox 07/22/21 18:37 97.9 F 54 L 15 156/71 H 99 07/22/21 17:46 98.2 F 58 L 12 170/76 H 98 07/22/21 17:34 61 14 164/78 H 98 07/22/21 17:19 62 14 165/74 H 98 07/22/21 17:05 69 15 182/81 H 99 07/22/21 16:50 97.9 F 67 20 186/90 H 99 - Problem List & Annotations (1) Acute chest wall pain SNOMED Code(s): 693921882, [id number] Code(s): R07.89 - OTHER CHEST PAIN Status: Acute Current Visit: Yes - Problem List Review Problem List Initiated/Reviewed/Updated: Yes - My Orders Last 24 Hours: My Active Orders 07/22/21 Chest 2V [CR] Routine 07/22/21 16:45 Oxygen Therapy, ED [RC] ASDIRECTED 07/22/21 17:01 Ribs 2V wo Chest Rt [CR] Stat 07/22/21 17:39 Ang Chest [CT] Stat 07/22/21 17:46 Vital Signs [RC] Q1H - Assessment/Plan Last 24 Hours: My Active Orders 07/22/21 Chest 2V [CR] Routine 07/22/21 16:45 Oxygen Therapy, ED [RC] ASDIRECTED 07/22/21 17:01 Ribs 2V wo Chest Rt [CR] Stat 07/22/21 17:39 Ang Chest [CT] Stat 07/22/21 17:46 Vital Signs [RC] Q1H
[2021-07-22 17:33] LABS: PTT,PARTIAL THROMBOPLSTIN TIME 23.5 SEC (23.2-32.3)
[2021-07-22] MEDS: Iopamidol 755 Mg/ML 100 ML Bottle IVPUSH ONE (18:06)
[2021-07-22 19:38] VITALS: BP 179/79; PULSE 56
== END 2021-07-22 19:45 | disposition home or self-care (01) ==
LOC: CC.ED 16:45
DX: R07.89 Other chest pain (principal); E78.00 Pure hypercholesterolemia, unspecified; I10 Essential (primary) hypertension; J44.9 Chronic obstructive pulmonary disease, unspecified; K21.9 Gastro-esophageal reflux disease without esophagitis; E03.9 Hypothyroidism, unspecified; Z79.82 Long term (current) use of aspirin; Z87.891 Personal history of nicotine dependence; Z79.899 Other long term (current) drug therapy; Z88.0 Allergy status to penicillin; Z88.8 Allergy status to other drugs, medicaments and biological substances
CPT/HCPCS: 36415; 71046; 71100-RT; 71275; 80053; 82550; 83615; 83690; 83735; 84484; 85025; 85379; 85610; 85730; 93005; 93010; 99284; 99285-25; Q9967

== ENCOUNTER 2021-10-13 12:49 | Emergency (ER) | payer MEDICARE, OTHER ==
[2021-10-13 13:04] VITALS: BP 179/88; PULSE 58
[2021-10-13 13:40] LABS: CHLORIDE,CL 102 mEq/L (98-106); SODIUM,NA 141 mEq/L (136-145)
[2021-10-13] MEDS ORDERED: Iopamidol 755 Mg/ML 100 ML Bottle IVPUSH ONE (14:04)
--- NOTE | 2021-10-13 16:31 | EDM.PDOC ---
ED HPI GENERAL MEDICAL PROBLEM - General Chief Complaint: Respiratory Problem Stated Complaint: SOB Time Seen by Provider: 10/13/21 13:16 Source of Information: Reports: Patient History Limitations: Reports: No Limitations - History of Present Illness INITIAL COMMENTS - FREE TEXT/NARRATIVE: Yasir is a 76 yo male who presents to the ED via private vehicle with complaints of shortness of breath and cough. States he has been just not feeling like himself this morning. States he is on oxygen at home for when he needs it. States he does have some mild chest discomfort as well. States the cough was really bad this morning but has since subsided. No increased discomfort with exertion. Has been having a dull headache as well. Middle Chest Pain Score (Numeric/FACES): 4 - Related Data Allergies Allergy/AdvReac Type Severity Reaction Status Date / Time Penicillins Allergy Severe Swollen Verified 10/13/21 13:06 Tongue simvastatin [From Zocor] Allergy Mild Itching Verified 10/13/21 13:06 atorvastatin Allergy Rash Verified 10/13/21 13:06 Home Meds: Home Meds Nitroglycerin [Nitrostat] 0.4 mg SL Q5M PRN 12/24/15 [History] Sertraline HCl 150 mg PO DAILY 12/24/15 [History] ALPRAZolam [Xanax] 0.5 mg PO Q6H PRN 01/27/16 [History] Carbidopa/Levodopa [Carbidopa-Levodopa 25-100] 1 each PO BID 03/21/18 [History] Budesonide [Pulmicort] 0.5 mg IH BID 06/19/19 [History] Fluticasone Propionate 2 spray DAYO DAILY 12/17/20 [History] Aspirin 1 tab PO DAILY 12/19/20 [History] Pantoprazole [ProTONIX] 40 mg PO DAILY 12/19/20 [History] Clopidogrel Bisulfate [Plavix] 75 mg PO DAILY 07/22/21 [History] Cyanocobalamin (Vitamin B-12) [B-12] 1,000 mcg PO DAILY 07/22/21 [History] Rosuvastatin [Crestor] 20 mg PO BEDTIME 07/22/21 [History] Isosorbide Mononitrate [Imdur] 30 mg PO DAILY 10/13/21 [History] Pramipexole Di-HCl [Pramipexole Dihydrochloride] 0.5 mg PO BEDTIME 10/13/21 [History] Past Medical History HEENT History: Reports: Impaired Vision Cardiovascular History: Reports: High Cholesterol, Hypertension, Stents Respiratory History: Reports: Asthma, COPD, SOB Other Respiratory History: [facility] history: implantable loop monitor--patient said because he "passed out", reflux, hypothyroid, COPD, hyperlipidemia, hypertension in [facility] chart, restless leg. Gastrointestinal History: Reports: GERD Musculoskeletal History: Reports: Arthritis Neurological History: Reports: Concussion Psychiatric History: Reports: Anxiety, Depression Endocrine/Metabolic History: Reports: Hypothyroidism Hematologic History: Reports: B12 Deficiency - Infectious Disease History Infectious Disease History: Reports: Shingles - Past Surgical History HEENT Surgical History: Reports: Cataract Surgery Cardiovascular Surgical History: Reports: Other (See Below) Other Cardiovascular Surgeries/Procedures: angiogram Respiratory Surgical History: Reports: None GI Surgical History: Reports: None Neurological Surgical History: Reports: None Musculoskeletal Surgical History: Reports: None Social & Family History - Family History Family Medical History: No Pertinent Family History - Tobacco Use Tobacco Use Status *Q: Former Tobacco User Used Tobacco, but Quit: Yes Month/Year Tobacco Last Used: xxxx - Caffeine Use Caffeine Use: Reports: Coffee ED ROS GENERAL - Review of Systems Review Of Systems: See Below Constitutional: Reports: Fatigue. Denies: Fever, Weakness HEENT: Reports: No Symptoms Respiratory: Reports: Shortness of Breath, Cough. Denies: Wheezing Cardiovascular: Reports: Dyspnea on Exertion (chronic), Lightheadedness. Denies: Palpitations GI/Abdominal: Reports: No Symptoms : Reports: No Symptoms Musculoskeletal: Reports: No Symptoms Skin: Reports: No Symptoms Neurological: Reports: Headache, Pre-Existing Deficit. Denies: Confusion, Difficulty Walking ED EXAM, GENERAL - Physical Exam Exam: See Below Exam Limited By: No Limitations General Appearance: Alert, No Apparent Distress, Anxious Ears: Normal External Exam, Normal Canal, Hearing Grossly Normal, Normal TMs Nose: Normal Inspection, No Blood Throat/Mouth: Normal Inspection, Normal Lips, Normal Teeth, Normal Gums, Normal Oropharynx, No Airway Compromise Head: Atraumatic, Normocephalic Neck: Normal Inspection, Supple, Non-Tender Respiratory/Chest: No Respiratory Distress, Lungs Clear, Decreased Breath Sounds. No: Rales, Rhonchi, Wheezing Cardiovascular: Regular Rate, Rhythm, No Edema, No Murmur GI/Abdominal: Normal Bowel Sounds, Soft, Non-Tender Extremities: Normal Inspection, No Pedal Edema Neurological: Alert, Oriented, Normal Cognition, No Motor/Sensory Deficits Psychiatric: Normal Affect, Normal Mood Skin Exam: Warm, Dry, Intact, Normal Color, No Rash #1 Interpretation EKG Date: 10/13/21 Time: 13:00 Rhythm: Other (sinus bradycardia) Rate (Beats/Min): 57 ST-T: Normal QT: Normal Comparison: No Change Course - Vital Signs Last Recorded V/S: Last Vital Signs Temp 97.9 F 10/13/21 13:00 Pulse 58 L 10/13/21 13:00 Resp 18 10/13/21 13:00 BP 179/88 H 10/13/21 13:00 Pulse Ox 94 L 10/13/21 13:00 - Orders/Labs/Meds Orders: Active Orders 24 hr Category Date Time Status Chest 2V [CR] Stat Exams 10/13/21 12:57 Taken Chest PE [Ang Chest] [CT] Stat Exams 10/13/21 14:00 Taken Labs: Laboratory Tests 10/13/21 10/13/21 10/13/21 Range/Units 13:14 13:14 13:14 WBC 3.6 L (4.0-11.0) 10^3/uL RBC 3.39 L (4.50-6.00) x10^6/uL Hgb 11.1 L (14.0-18.0) g/dL Hct 31.4 L (42.0-52.0) % MCV 92.6 (83.0-97.0) fL MCH 32.7 H (27.0-32.0) pg MCHC 35.4 (32.0-36.0) g/dL RDW Coeff of Arun 12.8 (11.0-15.0) % Plt Count 102 L (150-400) 10^3/uL Immature Gran % (Auto) 0.3 (0.0-4.9) % Neut % (Auto) 77.3 H (41-71) % Lymph % (Auto) 16.5 L (24-44) % [place] % (Auto) 5.0 (0-10) % Eos % (Auto) 0.6 (0-6) % Baso % (Auto) 0.3 (0-1) % Neut # (Auto) 2.77 (1.80-8.00) x10^3/uL Lymph # (Auto) 0.59 L (0.60-5.00) 10^3/uL [place] # (Auto) 0.18 (0.00-1.50) 10^3/uL Eos # (Auto) 0.02 (0.00-1.50) 10^3/uL Baso # (Auto) 0.01 (0.00-0.50) 10^3/uL Immature Gran # (Auto) 0.01 (0.00-0.49) 10^3/uL PT 10.7 (9.7-12.3) SEC INR 0.98 (0.92-1.18) D-Dimer, Quantitative 1.36 H (0.00-0.50) Sodium 141 (136-145) mEq/L Potassium 4.1 (3.5-5.0) mEq/L Chloride 102 (98-106) mEq/L Carbon Dioxide 32 (21-32) mmol/L BUN 25 H (7-18) mg/dL Creatinine 1.0 (0.7-1.3) mg/dL Est Cr Clr Drug Dosing 65.52 mL/min Estimated GFR (MDRD) > 60 (>=60) mL/min Glucose 126 H (75-99) mg/dL Lactic Acid (0.4-2.0) mmol/L Calcium 9.2 (8.4-10.1) mg/dL Total Bilirubin 1.0 (0.0-1.0) mg/dL AST 15 (15-37) U/L ALT 9 L (12-78) U/L Alkaline Phosphatase 55 (46-116) U/L Lactate Dehydrogenase 177 (100-190) U/L Creatine Kinase 94 (35-232) U/L Troponin I High Sens 7.5 (<=76) pg/mL NT-Pro-B Natriuret Pep (0-1000) pg/mL Total Protein 7.0 (6.4-8.2) g/dL Albumin 4.2 (3.4-5.0) g/dL SARS CoV-2 RNA Rapid EMIGDIO (NEGATIVE) 10/13/21 10/13/21 10/13/21 Range/Units 13:14 13:14 13:40 WBC (4.0-11.0) 10^3/uL RBC (4.50-6.00) x10^6/uL Hgb (14.0-18.0) g/dL Hct (42.0-52.0) % MCV (83.0-97.0) fL MCH (27.0-32.0) pg MCHC (32.0-36.0) g/dL RDW Coeff of Arun (11.0-15.0) % Plt Count (150-400) 10^3/uL Immature Gran % (Auto) (0.0-4.9) % Neut % (Auto) (41-71) % Lymph % (Auto) (24-44) % [place] % (Auto) (0-10) % Eos % (Auto) (0-6) % Baso % (Auto) (0-1) % Neut # (Auto) (1.80-8.00) x10^3/uL Lymph # (Auto) (0.60-5.00) 10^3/uL [place] # (Auto) (0.00-1.50) 10^3/uL Eos # (Auto) (0.00-1.50) 10^3/uL Baso # (Auto) (0.00-0.50) 10^3/uL Immature Gran # (Auto) (0.00-0.49) 10^3/uL PT (9.7-12.3) SEC INR (0.92-1.18) D-Dimer, Quantitative (0.00-0.50) Sodium (136-145) mEq/L Potassium (3.5-5.0) mEq/L Chloride (98-106) mEq/L Carbon Dioxide (21-32) mmol/L BUN (7-18) mg/dL Creatinine (0.7-1.3) mg/dL Est Cr Clr Drug Dosing mL/min Estimated GFR (MDRD) (>=60) mL/min Glucose (75-99) mg/dL Lactic Acid 1.3 (0.4-2.0) mmol/L Calcium (8.4-10.1) mg/dL Total Bilirubin (0.0-1.0) mg/dL AST (15-37) U/L ALT (12-78) U/L Alkaline Phosphatase (46-116) U/L Lactate Dehydrogenase (100-190) U/L Creatine Kinase (35-232) U/L Troponin I High Sens (<=76) pg/mL NT-Pro-B Natriuret Pep 201 (0-1000) pg/mL Total Protein (6.4-8.2) g/dL Albumin (3.4-5.0) g/dL SARS CoV-2 RNA Rapid EMIGDIO Negative (NEGATIVE) Meds: Medications Discontinued Medications Generic Name Dose Route Start Last Admin Trade Name Jona PRN Reason Stop Dose Admin Iopamidol 100 ml 10/13/21 14:04 10/13/21 14:42 Iopamidol 755 Mg/Ml 100 Ml Bottle IVPUSH 10/13/21 14:05 100 ml ONETIME ONE Administration Departure - Departure Time of Disposition: 16:32 Disposition: Home, Self-Care 01 Clinical Impression: Atypical chest pain COPD (chronic obstructive pulmonary disease) Qualifiers: COPD type: unspecified COPD Qualified Code(s): J44.9 - Chronic obstructive pulmonary disease, unspecified - Discharge Information Referrals: PCP,Unknown [Primary Care Provider] - Additional Instructions: 1) Laboratory work is normal today. Cardiac enzymes normal. CT Chest showed no pulmonary emboli, only chronic emphysema changes and atherosclerotic changes. 2) Continue with inhalers at home and oxygen as needed 3) If any pain worsens or worsening shortness of breath, advise reevaluation for repeat work up. 4) Oxygen saturation stable on room air Sepsis Event Note (ED) - Focused Exam Vital Signs: Vital Signs Temp Pulse Resp BP Pulse Ox 10/13/21 13:00 97.9 F 58 L 18 179/88 H 94 L - Problem List & Annotations (1) Atypical chest pain SNOMED Code(s): 902878770 Code(s): R07.89 - OTHER CHEST PAIN Status: Acute Current Visit: Yes (2) COPD (chronic obstructive pulmonary disease) SNOMED Code(s): 65221607 Code(s): J44.9 - CHRONIC OBSTRUCTIVE PULMONARY DISEASE, UNSPECIFIED Status: Acute Current Visit: Yes Qualifiers: COPD type: unspecified COPD Qualified Code(s): J44.9 - Chronic obstructive pulmonary disease, unspecified - My Orders Last 24 Hours: My Active Orders 10/13/21 12:57 Chest 2V [CR] Stat 10/13/21 14:00 Chest PE [Ang Chest] [CT] Stat - Assessment/Plan Last 24 Hours: My Active Orders 10/13/21 12:57 Chest 2V [CR] Stat 10/13/21 14:00 Chest PE [Ang Chest] [CT] Stat Plan: See additional instructions. Cardiac work up unremarkable. CT chest negative for any acute changes. Will discharge home at this time. Patient sitting up having normal conversation with no complaints at this time.
== END 2021-10-13 17:00 | disposition home or self-care (01) ==
LOC: CC.ED 12:49
DX: J44.9 Chronic obstructive pulmonary disease, unspecified (principal); I10 Essential (primary) hypertension; E78.00 Pure hypercholesterolemia, unspecified; E03.9 Hypothyroidism, unspecified; K21.9 Gastro-esophageal reflux disease without esophagitis; Z20.822 Contact with and (suspected) exposure to COVID-19; Z88.0 Allergy status to penicillin; Z88.8 Allergy status to other drugs, medicaments and biological substances; Z79.82 Long term (current) use of aspirin; Z79.02 Long term (current) use of antithrombotics/antiplatelets; Z79.899 Other long term (current) drug therapy; Z87.891 Personal history of nicotine dependence
CPT/HCPCS: 36415; 71046; 71275; 80053; 82550; 83605; 83615; 83880; 84484; 85025; 85379; 85610; 93005; 99285-25; Q9967; U0002

== ENCOUNTER 2022-09-01 11:30 | Observation (INO) | payer MEDICARE, OTHER | END 2022-09-02 12:52 | disposition home or self-care (01) | LOC: CC.ZCENSUS 11:30 | PROVIDERS: ADMIT Physician Assistant Medical; ATTEND Nurse Practitioner Family | DX: U07.1 COVID-19 (principal); J44.9 Chronic obstructive pulmonary disease, unspecified; Z87.891 Personal history of nicotine dependence; Z99.81 Dependence on supplemental oxygen; Z88.0 Allergy status to penicillin | CPT/HCPCS: 71046; 94640; 97161-GP ==

== ENCOUNTER 2025-05-09 16:30 | Inpatient (IN) | payer MEDICARE, OTHER ==
[2025-05-09] MEDS: Albuterol/Ipratropium 3.0-0.5 MG/3 ML Neb Soln NEB ONE (16:34)
[2025-05-09] MEDS: methylPREDNISolone Sodium Succinate 125 MG/2 ML SDV IVPUSH STA (16:44)
[2025-05-09] MEDS: methylPREDNISolone Sodium Succinate 125 MG/2 ML SDV ONE (16:48)
[2025-05-09 16:52] LABS: BASOPHILS ABSOLUTE AUTO 0.01 10^3/uL (0.00-0.50); BASOPHILS PERCENT AUTO 0.2 % (0-1); EOSINOPHILS ABSOLUTE AUTO 0.03 10^3/uL (0.00-1.50); EOSINOPHILS PERCENT AUTO 0.6 % (0-6); HEMATOCRIT 32.3 % (42.0-52.0); HEMOGLOBIN 10.7 g/dL (14.0-18.0); IMMATURE GRAN ABSOLUTE AUTO 0.03 10^3/uL (0.00-0.49); IMMATURE GRAN PERCENT AUTO 0.6 % (0.0-4.9); LYMPHOCYTES ABSOLUTE AUTO 0.77 10^3/uL (0.60-5.00); LYMPHOCYTES PERCENT AUTO 14.8 % (24-44); MEAN CORPUSCULAR HGB CONC 33.1 g/dL (32.0-36.0); MEAN CORPUSCULAR VOLUME 99.7 fL (83.0-97.0); MONOCYTES ABSOLUTE AUTO 0.24 10^3/uL (0.00-1.50); MONOCYTES PERCENT AUTO 4.6 % (0-10); NEUTROPHILS ABSOLUTE AUTO 4.13 x10^3/uL (1.80-8.00); NEUTROPHILS PERCENT AUTO 79.2 % (41-71); PLATELET COUNT,PLT 127 10^3/uL (150-400); RED BLOOD CELL COUNT 3.24 x10^6/uL (4.50-6.00); WHITE BLOOD CELL COUNT,WBC 5.2 10^3/uL (4.0-11.0)
[2025-05-09 17:06] LABS: BASE EXCESS ARTERIAL 4.3 (-2.0-3.0); BICARBONATE,ARTERIAL 29.6 mm/L (22.0-26.0); O2 DELIVERY DEVICE NASAL CANNULA; O2 SATURATION ARTERIAL 97 % (95-98); PCO2 ARTERIAL 46 mm/Hg0 (35-45); PH,ARTERIAL 7.41 (7.35-7.45); PO2 ARTERIAL 92 mm/Hg (80-100)
[2025-05-09 17:12] LABS: ALBUMIN 3.8 g/dL (3.4-5.0); BILIRUBIN TOTAL 0.8 mg/dL (0.0-1.0); CALCIUM 9.3 mg/dL (8.4-10.1); CREATININE 1.7 mg/dL (0.7-1.3); EST CRCL DRUG DOSING (CG) 29.97 mL/min; POTASSIUM,K 4.1 mEq/L (3.5-5.0); PROTEIN TOTAL,TP 7.1 g/dL (6.4-8.2)
[2025-05-09 17:13] LABS: D-DIMER QUANTITATIVE 1.9 (0.00-0.50); INR 0.99 (0.92-1.18); PROTHROMBIN TIME 10.3 SEC (9.3-11.3); PTT,PARTIAL THROMBOPLSTIN TIME 22.3 SEC (20.0-30.0)
[2025-05-09] MEDS ORDERED: Ondansetron 4 MG/2 ML SDV IV PRN (18:11)
[2025-05-09] MEDS ORDERED: Albuterol 0.083% 2.5 MG/3 ML Neb Soln NEB PRN (18:11)
[2025-05-09] MEDS ORDERED: Ondansetron 4 MG Tab.DIS PO PRN (18:11)
[2025-05-09] MEDS ORDERED: Morphine 15 MG Tab PO PRN (18:11)
[2025-05-09] MEDS ORDERED: Nitroglycerin 0.4 MG Tab.SL SL PRN (18:11)
[2025-05-09] MEDS ORDERED: ALPRAZOLAM 0.5 MG PO PRN (18:11)
[2025-05-09] MEDS: Azithromycin 250 MG Tab PO ONE (18:30)
[2025-05-09] MEDS: cefTRIAXone 1 GM Vial IVPUSH SCH (18:30)
[2025-05-09] MEDS: Sodium Chloride 0.9% 1,000 ML IV SCH (18:32)
[2025-05-09] MEDS: Pramipexole 0.5 MG Tab PO SCH (19:36)
[2025-05-09] MEDS: Rosuvastatin 10 MG Tab PO SCH (19:37)
[2025-05-09] MEDS: Enoxaparin 30 MG/0.3 ML Syringe SUBCUT SCH (19:37)
[2025-05-09] MEDS: Levalbuterol HCl 1.25 MG/3 ML Neb NEB SCH (19:37)
[2025-05-09] MEDS: Carbidopa/Levodopa 25-100 MG Tab PO SCH (19:37)
[2025-05-09] MEDS: Budesonide 0.5 MG/2 ML Neb Susp INH SCH (19:41)
[2025-05-09] MEDS: Tiotropium Bromide 4 GM Inhalation Spray (2.5mcg/1 dose; 10 doses) INH SCH (19:41)
[2025-05-10] MEDS: Levothyroxine 125 MCG Tab PO SCH (06:00)
[2025-05-10 07:24] LABS: HEMATOCRIT 23.4 % (42.0-52.0); HEMOGLOBIN 7.8 g/dL (14.0-18.0); IMMATURE GRAN ABSOLUTE AUTO 0.02 10^3/uL (0.00-0.49); IMMATURE GRAN PERCENT AUTO 0.7 % (0.0-4.9); LYMPHOCYTES ABSOLUTE AUTO 0.15 10^3/uL (0.60-5.00); LYMPHOCYTES PERCENT AUTO 4.9 % (24-44); MEAN CORPUSCULAR HEMOGLOBIN 32.9 pg (27.0-32.0); MEAN CORPUSCULAR HGB CONC 33.3 g/dL (32.0-36.0); MEAN CORPUSCULAR VOLUME 98.7 fL (83.0-97.0); MONOCYTES ABSOLUTE AUTO 0.12 10^3/uL (0.00-1.50); MONOCYTES PERCENT AUTO 3.9 % (0-10); NEUTROPHILS ABSOLUTE AUTO 2.77 x10^3/uL (1.80-8.00); NEUTROPHILS PERCENT AUTO 90.5 % (41-71); PLATELET COUNT,PLT 94 10^3/uL (150-400); RED BLOOD CELL COUNT 2.37 x10^6/uL (4.50-6.00); WHITE BLOOD CELL COUNT,WBC 3.1 10^3/uL (4.0-11.0)
[2025-05-10 07:52] LABS: BILIRUBIN TOTAL 0.4 mg/dL (0.0-1.0); C-REACTIVE PROTEIN 2.24 mg/dL (<=0.50); CALCIUM 8.7 mg/dL (8.4-10.1); CREATININE 1.5 mg/dL (0.7-1.3); EST CRCL DRUG DOSING (CG) 33.97 mL/min; POTASSIUM,K 4.7 mEq/L (3.5-5.0); PROTEIN TOTAL,TP 5.7 g/dL (6.4-8.2)
[2025-05-10] MEDS: Pantoprazole 40 MG Tab.CR PO SCH (08:13)
[2025-05-10] MEDS: methylPREDNISolone Sodium Succinate 125 MG/2 ML SDV IVPUSH SCH (08:13)
[2025-05-10] MEDS: Sertraline 100 MG Tab PO SCH (08:13)
[2025-05-10] MEDS: Aspirin 81 MG Tab.Chew PO SCH (08:13)
[2025-05-10] MEDS: Tamsulosin 0.4 MG Cap.ER PO SCH (08:13)
[2025-05-10] MEDS: amLODIPine 2.5 MG Tab PO SCH (08:16)
[2025-05-10] MEDS: Fluticasone NASAL Spray 16 GM Bottle NAS SCH (08:37)
[2025-05-10] MEDS: Acetaminophen 325 MG Tab PO PRN (10:47)
[2025-05-10] MEDS: cefTRIAXone 1 GM Vial IVPUSH SCH (17:08)
[2025-05-11] MEDS: ALPRAZolam 0.25 MG Tab PO PRN (03:32)
[2025-05-12 07:17] VITALS: BP 163/64
[2025-05-12 08:16] LABS: HEMOGLOBIN 9.5 g/dL (14.0-18.0); IMMATURE GRAN ABSOLUTE AUTO 0.05 10^3/uL (0.00-0.49); IMMATURE GRAN PERCENT AUTO 0.9 % (0.0-4.9); LYMPHOCYTES ABSOLUTE AUTO 0.45 10^3/uL (0.60-5.00); LYMPHOCYTES PERCENT AUTO 8.4 % (24-44); MEAN CORPUSCULAR HEMOGLOBIN 33.5 pg (27.0-32.0); MEAN CORPUSCULAR HGB CONC 33.9 g/dL (32.0-36.0); MEAN CORPUSCULAR VOLUME 98.6 fL (83.0-97.0); MONOCYTES ABSOLUTE AUTO 0.15 10^3/uL (0.00-1.50); MONOCYTES PERCENT AUTO 2.8 % (0-10); NEUTROPHILS ABSOLUTE AUTO 4.73 x10^3/uL (1.80-8.00); NEUTROPHILS PERCENT AUTO 87.9 % (41-71); PLATELET COUNT,PLT 120 10^3/uL (150-400); RED BLOOD CELL COUNT 2.84 x10^6/uL (4.50-6.00); WHITE BLOOD CELL COUNT,WBC 5.4 10^3/uL (4.0-11.0)
[2025-05-12 08:20] LABS: ALANINE AMINOTRANSFERASE,ALT 16 U/L (12-78); ALBUMIN 3.6 g/dL (3.4-5.0); ALKALINE PHOSPHATASE 75 U/L (46-116); ASPARTATE AMNIOTRANSFERASE,AST 49 U/L (15-37); BILIRUBIN TOTAL 0.7 mg/dL (0.0-1.0); BLOOD UREA NITROGEN,BUN 28 mg/dL (7-18); CALCIUM 9.5 mg/dL (8.4-10.1); CARBON DIOXIDE,CO2 27 mmol/L (21-32); CHLORIDE,CL 104 mEq/L (98-106); CREATININE 1.1 mg/dL (0.7-1.3); EST CRCL DRUG DOSING (CG) 46.32 mL/min; GLUCOSE RANDOM 90 mg/dL (75-99); POTASSIUM,K 4.8 mEq/L (3.5-5.0); PROTEIN TOTAL,TP 6.7 g/dL (6.4-8.2); SODIUM,NA 141 mEq/L (136-145)
[2025-05-12 08:21] LABS: C-REACTIVE PROTEIN < 0.50 mg/dL (<=0.50); ESTIMATED GFR 68 mL/min (>=60)
[2025-05-12 12:13] VITALS: PULSE 62
== END 2025-05-12 11:00 | disposition home or self-care (01) | DRG 192 ==
LOC: CC.ED 16:30 → CC.MS 17:51 → UNDOADMIN 18:03 → CC.MS 18:03
PROVIDERS: ADMIT Physician Assistant Medical; ATTEND Physician Assistant Medical
PROC: 4A133R1 Monitoring of Arterial Saturation, Peripheral, Percutaneous Approach (ICD-10-PCS; principal; 2025-05-09)
DX: J44.9 Chronic obstructive pulmonary disease, unspecified (principal); J44.1 Chronic obstructive pulmonary disease with (acute) exacerbation; J45.909 Unspecified asthma, uncomplicated; H54.7 Unspecified visual loss; E78.00 Pure hypercholesterolemia, unspecified; I10 Essential (primary) hypertension; Z66 Do not resuscitate; K21.9 Gastro-esophageal reflux disease without esophagitis; E03.9 Hypothyroidism, unspecified; G25.81 Restless legs syndrome; M19.90 Unspecified osteoarthritis, unspecified site; F41.9 Anxiety disorder, unspecified; F32.A Depression, unspecified; I65.21 Occlusion and stenosis of right carotid artery; Z87.820 Personal history of traumatic brain injury; Z95.5 Presence of coronary angioplasty implant and graft; Z98.49 Cataract extraction status, unspecified eye; Z88.0 Allergy status to penicillin; Z88.8 Allergy status to other drugs, medicaments and biological substances; Z79.899 Other long term (current) drug therapy; Z79.82 Long term (current) use of aspirin; Z79.890 Hormone replacement therapy; Z87.891 Personal history of nicotine dependence
CPT/HCPCS: 36415; 36600; 71045; 80053; 82803; 83880; 84484; 85025; 85379; 85610; 85730; 86140; 93005; 94640; 96374; 99223; 99232; 99233; 99239; 99285-25; A9270-GY; J0696; J1650; J2919; J7030; J7612-GY